=== PATIENT | female | born 1990 | race African-American/Black ===

== ENCOUNTER 2021-02-21 11:50 | Emergency (ER) | payer OTHER, SELFPAY ==
--- NOTE | ~2021-02-21 | XR_ITS ---
EXAMINATION: XR FOREARM, RIGHT CLINICAL INFORMATION: Right forearm pain COMPARISON: None TECHNIQUE: AP and lateral views of the right forearm were obtained. FINDINGS: There is no evidence of acute fracture or dislocation of the right forearm. No elbow effusion is appreciated. No destructive bony lesion. There is negative ulnar variance present. Appears to be some mild edema about the mid ulna. XR/XR forearm RT 2V IMPRESSION: No significant right forearm abnormality appreciated.
--- NOTE | ~2021-02-21 | US_ITS ---
EXAMINATION: US VENOUS WITH DOPPLER UPPER EXTREMITY, RIGHT CLINICAL INFORMATION: Right forearm pain COMPARISON: None TECHNIQUE: Ultrasound of the upper extremity is performed using compression sonography and color and pulse Doppler flow with assessment of augmentation of flow. There is also imaging and Doppler assessment of the jugular and subclavian veins. Spectral analysis with color-flow imaging is performed. FINDINGS: There is filling defect with lack of distensibility within the right cephalic veins in the mid forearm consistent with acute DVT. Respiratory variation, normal compression, and augmented flow are noted the upper extremity including the axillary, brachial, cubital, and radial veins. There is normal flow in the internal jugular and subclavian veins. US/US venous duplex UE RT IMPRESSION: Acute DVT within the right ulnar veins in the forearm.
[2021-02-21 12:04] VITALS: BP 122/95; PULSE 65; RESP 18; TEMP 36.4; O2SAT 98; BMI 32.1
--- NOTE | 2021-02-21 13:02 | ED.EXTPRO ---
HPI - Extremity Problem General Chief complaint: Extremity Injury, Upper Stated complaint: rt arm pain Time Seen by Provider: 02/21/21 12:57 Source: patient Mode of arrival: ambulatory Limitations: no limitations History of Present Illness HPI Narrative: Patient presents to the ED for right forearm pain. Patient states right forearm pain since yesterday. Patient denies any blunt trauma to the forearm. 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 Patient denies any swelling of upper extremity or redness. Patient is not on any control pills patient denies any chest pain or shortness of breath. Patient denies any new workouts. Patient states pain only from elbow down. Patient denies any recent blood drawn extremity or needle puncture of a right upper extremity. Patient denies any drug use. Patient denies any recent surgery, recent long travel, or history of any blood clots. MD Complaint: extremity pain Related Data Previous Rx's Medication Instructions Recorded apixaban [Eliquis DVT-PE Treat 30D 5 mg PO PER PKG DIR #74 ea 02/21/21 Start] Allergies Allergy/AdvReac Type Severity Reaction Status Date / Time No Known Allergies Allergy Unverified 07/13/20 19:17 Review of Systems Review of Systems: Yes all other systems are reviewed and are negative Constitutional: Constitutional: Reports as per HPI and Reports no additional constitutional complaints Eyes: Eyes: Reports as per HPI and Reports no additional eye complaints ENT: Reports system reviewed and no additional complaints, except as documented and Reports as per HPI Cardiovascular: Cardiovascular: Reports as per HPI and Reports no additional cardiovascular complaints Respiratory: Respiratory: Reports as per HPI and Reports no additional respiratory complaints Gastrointestinal: Gastrointestinal: Reports as per HPI and Reports no additional gastrointestinal complaints Genitourinary: Genitourinary: Reports no additional female genitourinary complaints and Reports as per HPI Musculoskeletal: Musculoskeletal: Reports no additional musculoskeletal complaints and Reports as per HPI Comments: Right forearm pain Neurologic: Reports system reviewed and no additional complaints, except as documented and Reports as per HPI Psychiatric: Psychiatric: Reports no additional psychiatric complaints and Reports as per HPI [facility] Past Medical History Medical History (Updated 02/21/21 @ 18:26 by WICHO [place]) Anxiety Surgical History (Updated 02/21/21 @ 12:05 by Abby L Youmell) No pertinent past surgical history Social History Social History Smoked in Last 30 Days: No Use of substances other than those prescribed or required for medical reasons: No Advance Directives: No Advance Directives Information Provided: No Physical Exam Vital Signs: Vital Signs: Last Vital Signs Temp 98.0 F 02/21/21 18:38 Pulse 65 02/21/21 18:38 Resp 16 02/21/21 18:38 BP 119/80 02/21/21 18:38 Pulse Ox 99 02/21/21 18:38 Body Mass Index 32.1 Const: General: cooperative, healthy appearing, comfortable, no acute distress, well developed, alert, awake and Physically active Orientation/consciousness: patient oriented x3 HENMT: Head: Yes normal to inspection, Yes No palpable skull fracture present, Yes normocephalic, No atraumatic, No Ríos's sign, No contusion, No cranial bruits, No hematoma, No laceration, No occipital foramen tenderness, No palpable skull fracture, No raccoon eyes, No scalp lesion, No scalp tenderness, No Temporal artery tenderness present and No periorbital ecchymosis Eyes: General: appearance normal, both eyes and all related structures Neck: Neck: Yes normal visual inspection, Yes full ROM, Yes no lymphadenopathy, Yes no meningeal signs, Yes trachea midline, Yes supple and No tender Chest: Chest palpation & inspection: normal inspection of the chest and normal palpation of entire chest wall Resp: Effort & Inspection: normal respiratory effort and able to speak in complete sentences Auscultation: clear to auscultation bilaterally Cardio: Jugular venous distension: no JVD Heart sounds: S1 normal heart sound present and S2 normal heart sound present GI: Inspection: Yes normal to inspection and No abdominal wall ecchymosis Palpation (GI): Soft to palpation, not firm, nontender, no guarding and not rigid : General: No CVA tenderness and Yes no CVA tenderness Back/Spine/Pelvis: Back: no CVA tenderness, No CVA tenderness and No back tenderness Skin: General skin exam: no rashes or lesions noted and elasticity normal Neuro: General: patient oriented x3, no meningeal signs and CN's II-XI intact bilaterally Cranial nerves: Yes CN's II-XII intact bilaterally Extrem: Other: Right upper extremity: Negative for any swelling, redness, ecchymosis, pus discharge, foul odor, wounds, ulcers, point of entry<del>,</del> or mass on palpation. Positive for tenderness on palpation of right forearm, but is not out of proportion. General: Yes normal to inspection and Yes full ROM Psych: Appearance: grossly normal, well kempt and not disheveled Course Course Course Narrative: Patient will be sent for x-ray of right forearm and given Motrin and Flexeril. Reevaluation(s) Reevaluation #1: Right upper extremity ultrasound came back positive for DVT. Spoke with Dr. Veronica of Hematology and he recommend patient be started on Eliquis. He also recommended patient to have hyper coagulable workup labs and they were ordered. Basic labs also sent. Reevaluation #2: Lab seismograph supervisor canceled hyper coagulable labs that were sent and Dr. Veronica was made aware. He states patient can still be started on Eliquis. Patient informed to call tomorrow Dr. Veronica for follow-up MDM - Extremity (Nontraumatic) MDM Narrative Medical decision making narrative: DVT Lab Data Result diagrams: 02/21/21 16:50 02/21/21 16:50 Labs: Lab Results 02/21/21 02/21/21 02/21/21 Range/Units 16:49 16:50 16:50 WBC 8.1 (4.8-10.8) X10*3/uL RBC 4.12 L (4.20-5.50) X10*6/uL Hgb 13.5 (12.0-16.0) g/dl Hct 41.0 (37-47) % MCV 99.5 H (80-98) fL MCH 32.8 (27.0-33.0) pg MCHC 32.9 (31.0-35.0) g/dl RDW 13.3 (11.0-16.0) % Plt Count 325 (160-400) X10*3/uL MPV 9.6 (9.4-12.3) fL Immature Gran % (Auto) 0.2 (0.0-0.4) % Neut % (Auto) 58.7 (45-73) % Lymph % (Auto) 29.8 (20-40) % Shannon % (Auto) 10.0 (2-11) % Eos % (Auto) 1.2 (0-4) % Baso % (Auto) 0.1 (0-2) % Lymph # (Auto) 2.4 (1.2-4.9) X10*3/uL Shannon # (Auto) 0.8 (0.1-1.2) X10*3/uL Eos # (Auto) 0.1 (0.0-0.4) X10*3/uL Baso # (Auto) 0.0 (0.0-0.2) X10*3/uL Abs Immat Gran (auto) 0.02 (0.00-0.03) X10*3/uL Absolute Neuts (auto) 4.8 (2.0-8.3) X10*3/uL Absolute Nucleated RBC 0.000 (0.0-0.012) X10*3/uL Nucleated RBC % (auto) 0.0 (0.0-0.2) /100WBC PT 13.1 H (10.8-13.0) SEC INR 1.1 (0.9-1.1) APTT 36.9 (24.1-38.0) SEC D-Dimer < 200 NG/ML Sodium (135-145) mmol/L Potassium (3.3-5.1) mmol/L Chloride (96-108) mmol/L Carbon Dioxide (22-29) mmol/L Anion Gap (12-20) BUN (9-16) mg/dL Creatinine (0.5-1.4) mg/dL Estim Creat Clear Calc Estimated GFR Random Glucose (60-115) mg/dL Calcium (8.4-10.2) mg/dL Total Bilirubin (0.0-1.0) mg/dL Direct Bilirubin (0.0-0.5) mg/dL AST (5-31) U/L ALT (0-31) U/L Alkaline Phosphatase (39-117) U/L Total Protein (6.5-8.0) g/dL Albumin (3.5-5.0) g/dL 02/21/ Range/Units 16:50 WBC (4.8-10.8) X10*3/uL RBC (4.20-5.50) X10*6/uL Hgb (12.0-16.0) g/dl Hct (37-47) % MCV (80-98) fL MCH (27.0-33.0) pg MCHC (31.0-35.0) g/dl RDW (11.0-16.0) % Plt Count (160-400) X10*3/uL MPV (9.4-12.3) fL Immature Gran % (Auto) (0.0-0.4) % Neut % (Auto) (45-73) % Lymph % (Auto) (20-40) % Shannon % (Auto) (2-11) % Eos % (Auto) (0-4) % Baso % (Auto) (0-2) % Lymph # (Auto) (1.2-4.9) X10*3/uL Shannon # (Auto) (0.1-1.2) X10*3/uL Eos # (Auto) (0.0-0.4) X10*3/uL Baso # (Auto) (0.0-0.2) X10*3/uL Abs Immat Gran (auto) (0.00-0.03) X10*3/uL Absolute Neuts (auto) (2.0-8.3) X10*3/uL Absolute Nucleated RBC (0.0-0.012) X10*3/uL Nucleated RBC % (auto) (0.0-0.2) /100WBC PT (10.8-13.0) SEC INR (0.9-1.1) APTT (24.1-38.0) SEC D-Dimer NG/ML Sodium 137 (135-145) mmol/L Potassium 4.5 (3.3-5.1) mmol/L Chloride 103 (96-108) mmol/L Carbon Dioxide 26 (22-29) mmol/L Anion Gap 13 (12-20) BUN 10 (9-16) mg/dL Creatinine 0.76 (0.5-1.4) mg/dL Estim Creat Clear Calc 111.8 Estimated GFR > 60 Random Glucose 89 (60-115) mg/dL Calcium 9.7 (8.4-10.2) mg/dL Total Bilirubin 1.0 (0.0-1.0) mg/dL Direct Bilirubin 0.4 (0.0-0.5) mg/dL AST 18 (5-31) U/L ALT 22 (0-31) U/L Alkaline Phosphatase 59 (39-117) U/L Total Protein 7.7 (6.5-8.0) g/dL Albumin 4.4 (3.5-5.0) g/dL Discharge Plan Discharge Clinical Impression: DVT (deep venous thrombosis) Patient Disposition: Home, Self-Care Instructions: Deep Vein Thrombosis (ED) Additional Instructions: Return to the ED for chest pain, shortness of breath, swelling of right upper extremity, weakness, dizziness, passing out, or any other concerning symptoms. Prescriptions: New Eliquis DVT-PE Treat 30D Start 5 mg (74 tabs) tablets,dose pack 5 mg PO PER PKG DIR Qty: 74 RF: 0 Referrals: Anita Veronica MD [Physician] - 2 days (DVT of right arm) Stand Alone Forms: Work/School Release Interventions: ED Discharge Assessment Last Done: 02/21/21 18:45 Discharge Date/Time: 02/21/21 18:45
[2021-02-21] MEDS: Ibuprofen 800 MG TABLET PO (13:18)
[2021-02-21] MEDS: Cyclobenzaprine HCl 5 MG TABLET PO (13:18)
[2021-02-21 15:33] VITALS: BP 121/85; PULSE 62; RESP 14; TEMP 36.7; O2SAT 99
--- NOTE | 2021-02-21 16:01 | PC.NURSE ---
WICHO KENNEY CONSULTED SANDING MACHINE TENDER RE: POC, PT UPDATED LABS TO BE DRAWN AND PT TO BE STARTED ON ELIQUIS PRIOR TO DC, PT AGREEABLE TO POC
[2021-02-21 17:03] LABS: Basophils Percent Auto 0.1 % (0-2); Eosinophils Absolute Auto 0.1 X10*3/uL (0.0-0.4); Eosinophils Percent Auto 1.2 % (0-4); Hemoglobin 13.5 g/dl (12.0-16.0); Imm Gran Abs Auto 0.02 X10*3/uL (0.00-0.03); Imm Gran Pct Auto 0.2 % (0.0-0.4); Lymphocytes Absolute Auto 2.4 X10*3/uL (1.2-4.9); Lymphocytes Percent Auto 29.8 % (20-40); MANUAL DIFF FLAG NO; Mean Corpuscular HGB Conc 32.9 g/dl (31.0-35.0); Mean Corpuscular Hemoglobin 32.8 pg (27.0-33.0); Mean Corpuscular Volume 99.5 fL (80-98); Mean Platelet Volume 9.6 fL (9.4-12.3); Monocytes Absolute Auto 0.8 X10*3/uL (0.1-1.2); Neutrophils Absolute Auto 4.8 X10*3/uL (2.0-8.3); Neutrophils Percent Auto 58.7 % (45-73); Platelet Count 325 X10*3/uL (160-400); Red Blood Count 4.12 X10*6/uL (4.20-5.50); Red Cell Distribution Width 13.3 % (11.0-16.0); White Blood Count 8.1 X10*3/uL (4.8-10.8)
[2021-02-21 17:10] LABS: INTERNATIONAL NORM RATIO 1.1 (0.9-1.1); Prothrombin Time 13.1 SEC (10.8-13.0)
[2021-02-21 17:13] LABS: Partial Thromboplastin Time 36.9 SEC (24.1-38.0)
[2021-02-21 17:33] LABS: Alanine Aminotransferase 22 U/L (0-31); Albumin Level 4.4 g/dL (3.5-5.0); Alkaline Phosphatase 59 U/L (39-117); Anion Gap 13 (12-20); Aspartate Amino Transferase 18 U/L (5-31); Bilirubin Direct 0.4 mg/dL (0.0-0.5); Blood Urea Nitrogen 10 mg/dL (9-16); Calcium 9.7 mg/dL (8.4-10.2); Carbon Dioxide 26 mmol/L (22-29); Chloride 103 mmol/L (96-108); Creatinine Clr Calc Pharmacy 111.8; Estimated Glomerular Filt Rate > 60; Glucose Random 89 mg/dL (60-115); Potassium 4.5 mmol/L (3.3-5.1); Sodium 137 mmol/L (135-145); Total Protein 7.7 g/dL (6.5-8.0)
[2021-02-21 17:51] LABS: D Dimer < 200 NG/ML
[2021-02-21 18:38] VITALS: BP 119/80; PULSE 65; RESP 16; TEMP 36.7; O2SAT 99
== END 2021-02-21 18:45 | disposition home or self-care (01) ==
PROVIDERS: Physician Assistant; Emergency Provider Emergency Medicine Emergency Medical Services
DX: I82.621 Acute embolism and thrombosis of deep veins of right upper extremity (principal); M79.631 Pain in right forearm
CPT/HCPCS: 36415; 73090; 80053; 80076; 82248; 85025; 85379; 85610; 85730; 93971; 99284

== ENCOUNTER 2021-02-22 18:36 | Emergency (ER) | payer OTHER, SELFPAY ==
[2021-02-22 19:41] VITALS: BP 122/82; PULSE 64; RESP 16; TEMP 36.3; O2SAT 99; BMI 32.1
--- NOTE | 2021-02-22 20:58 | ED_ITS ---
HPI - Extremity Problem General Chief complaint: Extremity Problem Stated complaint: BLOOD CLOT Time Seen by Provider: 02/22/21 20:55 Source: patient Mode of arrival: ambulatory Limitations: no limitations History of Present Illness HPI Narrative: Patient was seen here yesterday for right diagnosed with right and a DVT started on Eliquis comes here now saying that she pale feeling pain in the right arm with some tingling in the left arm no shortness of breath no fever skin no swelling patient seems to be slightly anxious and worried Related Data Previous Rx's Medication Instructions Recorded apixaban [Eliquis DVT-PE Treat 30D 5 mg PO PER PKG DIR #74 ea 02/21/21 Start] apixaban [Eliquis] 5 mg PO BID #180 tab 02/26/21 Allergies Allergy/AdvReac Type Severity Reaction Status Date / Time No Known Allergies Allergy Verified 03/15/21 10:31 Review of Systems 2 Review of Systems: Yes all other systems are reviewed and are negative [facility] Past Medical History Medical History Anxiety Thrombosis Surgical History H/O wisdom tooth extraction No pertinent past surgical history Family History Family History Father Heart disease H/O deep venous thrombosis Mother Graves disease Social History Social History Alcohol intake: current Alcohol intake frequency: 0-2 drinks per day Alcohol type: beer Cigarettes Per Day: 2 Substance Use Type: Marijuana Advance Directives: No Advance Directives Information Provided: No Patient : No Physical Exam Vital Signs: Vital Signs: Last Vital Signs Temp 97.4 F 02/22/21 19:41 Pulse 64 02/22/21 19:41 Resp 16 02/22/21 19:41 BP 122/82 02/22/21 19:41 Pulse Ox 99 02/22/21 19:41 Body Mass Index 32.1 Appearance: Alert. Oriented X3. No acute distress. Anxious Eyes: PERRLA, No Nystagmus ENT: Pharynx normal. Oral Mucosa moist Neck: Normal inspection. Neck supple. CVS: Normal heart rate and rhythm. Pulses normal. Respiratory: No respiratory distress. Equal air entry bilateral, no wheezing/rales/rhonchi Abdomen: Soft and nontender. Bowel sounds are present, no mass palpable, no CVA tenderness Skin: Skin warm and dry. Normal skin color. Normal skin turgor. Extremities: No lower extremity edema. No calf tenderness slight tenderness without significant swelling of right forearm Neuro: Oriented X 3. No motor deficit. No sensory deficit Discharge Plan Discharge Clinical Impression: Deep venous thrombosis of upper extremity Qualifiers: Affected thrombotic vein of extremity: other upper extremity vein Chronicity: acute Laterality: right Qualified Code(s): I82.621 - Acute embolism and thrombosis of deep veins of right upper extremity Patient Disposition: Home, Self-Care Instructions: Deep Vein Thrombosis (ED) Additional Instructions: continue to take Eliquis and follow up with PCP Prescriptions: No Action Eliquis DVT-PE Treat 30D Start 5 mg (74 tabs) tablets,dose pack 5 mg PO PER PKG DIR Qty: 74 RF: 0 Eliquis 5 mg Tablet 5 mg PO BID Qty: 180 RF: 2 Interventions: ED Discharge Assessment Last Done: 02/22/21 21:37 Discharge Date/Time: 02/22/21 21:23
== END 2021-02-22 21:23 | disposition home or self-care (01) ==
PROVIDERS: Emergency Provider Internal Medicine
DX: I82.621 Acute embolism and thrombosis of deep veins of right upper extremity (principal); M79.622 Pain in left upper arm; F17.210 Nicotine dependence, cigarettes, uncomplicated; F12.90 Cannabis use, unspecified, uncomplicated; Z79.01 Long term (current) use of anticoagulants
CPT/HCPCS: 99282; 99283

== ENCOUNTER → 2021-02-27 11:18 | Outpatient (BNVA) | payer OTHER, SELFPAY | PROVIDERS: PCP Nurse Practitioner; Visit Provider Surgery Vascular Surgery ==

== ENCOUNTER → 2021-02-28 06:38 | Day surgery (SDC) | payer OTHER, SELFPAY ==
[2021-02-28 06:27] VITALS: BMI 31.6
[2021-02-28 06:35] LABS: MANUAL DIFF FLAG NO
[2021-02-28 06:42] LABS: Basophils Percent Auto 0.1 % (0-2); Eosinophils Absolute Auto 0.1 X10*3/uL (0.0-0.4); Eosinophils Percent Auto 1.1 % (0-4); Hematocrit 38.2 % (37-47); Hemoglobin 12.8 g/dl (12.0-16.0); Imm Gran Abs Auto 0.01 X10*3/uL (0.00-0.03); Imm Gran Pct Auto 0.1 % (0.0-0.4); Lymphocytes Absolute Auto 1.9 X10*3/uL (1.2-4.9); Mean Corpuscular HGB Conc 33.5 g/dl (31.0-35.0); Mean Corpuscular Volume 98.5 fL (80-98); Mean Platelet Volume 9.9 fL (9.4-12.3); Monocytes Absolute Auto 0.7 X10*3/uL (0.1-1.2); Monocytes Percent Auto 9.5 % (2-11); Neutrophils Absolute Auto 4.7 X10*3/uL (2.0-8.3); Neutrophils Percent Auto 63.2 % (45-73); Platelet Count 316 X10*3/uL (160-400); Red Blood Count 3.88 X10*6/uL (4.20-5.50); Red Cell Distribution Width 12.8 % (11.0-16.0); White Blood Count 7.4 X10*3/uL (4.8-10.8)
[2021-02-28 06:50] LABS: INTERNATIONAL NORM RATIO 1.1 (0.9-1.1); Prothrombin Time 13.3 SEC (10.8-13.0)
[2021-02-28] MEDS: 0.9 % Sodium Chloride 1,000 ML 100 ML IVCONT (07:00)
[2021-02-28 07:01] VITALS: BP 114/84; PULSE 71; RESP 18; TEMP 36.6; O2SAT 98
[2021-02-28 07:12] LABS: Anion Gap 10 (12-20); Blood Urea Nitrogen 8 mg/dL (9-16); Calcium 9.2 mg/dL (8.4-10.2); Carbon Dioxide 26 mmol/L (22-29); Chloride 105 mmol/L (96-108); Creatinine Clr Calc Pharmacy 108.1; Estimated Glomerular Filt Rate > 60; Glucose Random 104 mg/dL (60-115); Potassium 4.4 mmol/L (3.3-5.1); Sodium 137 mmol/L (135-145)
--- NOTE | 2021-02-28 08:49 | W.PM.OPN ---
Operative Note Operative Note Date of Service: 02/28/21 Narrative: Operative note by [facility] Preoperative diagnosis: DVT right upper extremity Postoperative diagnosis: Same Procedure: 1. Ultrasound-guided right brachial vein puncture 2.Right upper extremity venogram Surgeon:Erick iMtchell M.D. 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 She was seen by Hematology Oncology and there was concern potential venous thoracic outlet occlusion. Also of note she has a father 2 aunts and a grandfather with a history of DVT. She now presents for right upper extremity venogram possible thrombolysis. The patient has signed the informed consent after reviewing risks, complications, benefits, and alternatives previously discussed with the patient in my office. The patient was given the opportunity to ask any additional questions or voice any concerns. All questions were answered to the patient's satisfaction. Procedure in detail: Patient was brought to the angiography suite prior to which timeout was called for patient identification and site verification right upper extremity was prepped and draped in the standard surgical fashion. Under ultrasound guidance right brachial vein was identified and puncture. Subsequent wire was brought up in to a more central location. Over this a 4 [place]awk precision sheath was then placed. This was flushed with hep saline. At this point we took venous images the brachial vein and all central veins. Multiple orthogonal views were undertaken. There was 1 segment in the acromial clavicular joint which was mildly stenotic. This did not appear flow limiting. No intervention was indicated. Wire and sheath were subsequently removed. 10 minutes of direct pressure was held. Sterile dressing along with Abdirahman wrap was then placed. Patient tolerated the procedure well and returned to recovery with stable vitals. Interpretation of films.: Normal venous anatomy with no flow-limiting stenosis. No central thrombosis. Conclusion: Successful diagnostic venogram. She will resume her Eliquis. She is currently undergoing hypercoagulable workup with Hematology Oncology. This note is constructed using voice recognition software. While every effort has been made to ensure accuracy, maintenance advisor errors may have been included. Thank you for allowing me to participate in the care of your patient. Yours sincerely, Erick Mitchell MD, FACS, R.P.V.I.
[2021-02-28 08:51] VITALS: BP 111/76; PULSE 63; RESP 16; TEMP 36.2; O2SAT 99
[2021-02-28 09:06] VITALS: BP 110/80; PULSE 57; RESP 17; O2SAT 98
[2021-02-28 09:21] VITALS: BP 108/79; PULSE 68; RESP 17; TEMP 36.2; O2SAT 99
== END | disposition home or self-care (01) ==
PROVIDERS: PCP Nurse Practitioner; Visit Provider Surgery Vascular Surgery
DX: I82.621 Acute embolism and thrombosis of deep veins of right upper extremity (principal); Z79.02 Long term (current) use of antithrombotics/antiplatelets; F12.90 Cannabis use, unspecified, uncomplicated; Z72.89 Other problems related to lifestyle; F17.210 Nicotine dependence, cigarettes, uncomplicated; Z82.49 Family history of ischemic heart disease and other diseases of the circulatory system
CPT/HCPCS: 36415; 75820; 76937; 80048; 85025; 85610; 85730; 99152; 99153; C1887; J2250; J3010; Q9967

== ENCOUNTER → 2021-03-15 10:29 | Outpatient (BNVA) | payer OTHER, SELFPAY | PROVIDERS: PCP Nurse Practitioner; Visit Provider Surgery Vascular Surgery ==

== ENCOUNTER 2021-03-27 20:27 | Emergency (ER) | payer OTHER, SELFPAY ==
--- NOTE | ~2021-03-27 | US_ITS ---
EXAMINATION: US VENOUS WITH DOPPLER UPPER EXTREMITY, RIGHT CLINICAL INFORMATION: Rule out DVT COMPARISON: 02/21/2021 TECHNIQUE: Ultrasound of the upper extremity is performed using compression sonography and color and pulse Doppler flow with assessment of augmentation of flow. There is also imaging and Doppler assessment of the jugular and subclavian veins. Spectral analysis with color-flow imaging is performed. FINDINGS: Respiratory variation, normal compression, and augmented flow are noted throughout the upper extremity including the axillary, brachial, basilic, cephalic, and radial and ulnar veins. There is normal flow in the internal jugular and subclavian veins. There is no visible deep or superficial thrombophlebitis. If the patient's symptoms progress, a followup ultrasound in 5 -7 days might be of value to exclude proximal propagation from a nonvisualized distal arm vein. US/US venous duplex UE RT IMPRESSION: No DVT demonstrated in the right upper extremity.
[2021-03-27 21:38] VITALS: BP 129/88; PULSE 85; RESP 16; TEMP 36.2; O2SAT 98; BMI 30.6
--- NOTE | 2021-03-28 00:56 | ED_ITS ---
HPI - Extremity Problem General Chief complaint: Extremity Problem Stated complaint: ARM PAIN - NUMBNESS Time Seen by Provider: 03/28/21 00:49 Source: patient Mode of arrival: ambulatory Limitations: no limitations History of Present Illness HPI Narrative: Patient comes emergency room complaining numbness/tingling sensation in her right forearm. Patient states it is the same sensation she had when she was diagnosed with a DVT. Patient is currently on Eliquis, states she is compliant with her medication. Patient states it started a few hours prior to arrival, patient states it does not hurt, but she thinks it is slightly more swollen, right below the elbow. Patient is able to flex and extend the wrist, elbow, normal range of motion at the shoulder. Denies chest pain, no shortness of breath, no lower extremity pain Related Data Previous Rx's Medication Instructions Recorded apixaban [Eliquis DVT-PE Treat 30D 5 mg PO PER PKG DIR #74 ea 02/21/21 Start] apixaban [Eliquis] 5 mg PO BID #180 tab 02/26/21 Allergies Allergy/AdvReac Type Severity Reaction Status Date / Time No Known Allergies Allergy Verified 03/15/21 10:31 Review of Systems Review of Systems: Constitutional : No Weight loss, No Fever, No Chills, No Night Sweats, No Fatigue, No Malaise ENT/Mouth : No Hearing loss, No Ear Pain, No Nasal Congestion, No Sinus Pain, No Hoarseness, No sore throat, No Rhinorrhea, No Swallowing Difficulty Eyes: No Eye Pain, No Swelling, No Redness, No Foreign Body, No Discharge, No Vision Changes Cardiovascular : No Chest Pain, No SOB, No Dyspnea on Exertion, No Orthopnea, No Edema, No Palpitations Respiratory : No Cough, No Sputum, No Wheezing, No Smoke Exposure, No Dyspnea Gastrointestinal : No Nausea, No Vomiting, No Diarrhea, No Constipation, No abdominal Pain, No Hematochezia, No Melena Genitourinary : no irregular bleeding, No Dysuria, No Urinary Frequency, No Hematuria, No Urinary Incontinence, No Urgency, No Flank Pain, No Urinary Flow Changes, No Hesitancy Musculoskeletal : Complaining of right forearm numbness, tingling Skin : No Skin Lesions, No rash Neuro : No Weakness, No Numbness, No Paresthesias, No Loss of Consciousness, No Dizziness, No Headache Psych : No Anxiety/Panic, No Depression, No SI/HI/AH/VH, No Social Issues, Heme/Lymph: No Bruising, No Bleeding,No Lymphadenopathy Endocrine : No Polyuria, No Polydipsia, No Temperature Intolerance [facility] Past Medical History Medical History Anxiety Thrombosis Surgical History H/O wisdom tooth extraction No pertinent past surgical history Family History Family History Father Heart disease H/O deep venous thrombosis Mother Graves disease Social History Social History Alcohol intake: current Alcohol intake frequency: 0-2 drinks per day Alcohol type: beer Cigarettes Per Day: 2 Substance Use Type: Marijuana Advance Directives: No Advance Directives Information Provided: No Patient : No Physical Exam Vital Signs: Vital Signs: Last Vital Signs Temp 97.2 F 03/27/21 21:38 Pulse 85 03/27/21 21:38 Resp 16 03/27/21 21:38 BP 129/88 03/27/21 21:38 Pulse Ox 98 03/27/21 21:38 Body Mass Index 30.6 Appearance: Alert. Oriented X3. No acute distress. Eyes: Pupils equal, round and reactive to light. ENT: Pharynx normal. Neck: Normal inspection. Neck supple. No lymph nodes noted. No crepitus CVS: Normal heart rate and rhythm. Pulses normal. Normal S1 and S2 Respiratory: No respiratory distress. Breath sounds normal. No Wheezing. No rales Abdomen: Soft and nontender. No rigidity. No distention. good BS x4 Skin: Skin warm and dry. Normal skin color. Normal skin turgor. Extremities: No lower extremity edema. Right forearm does not seem to be swollen, not tender to touch, patient has normal range of motion and shoulder elbow and wrist Neuro: Oriented X 3. No motor deficit. No sensory deficit. Moving all extermities. No slurred speech. Course Course Course Narrative: I discussed the ultrasound with the patient, no DVT. It is possible the patient may have an impinged nerve at the elbow. At this time, there are no neurological deficits, patient has no pain, has full range of motion, neurological exam within normal limits MDM - Extremity (Nontraumatic) Imaging Data Ultrasound of right arm: Radiologist's impression: TECHNIQUE: Ultrasound of the upper extremity is performed using compression sonography and color and pulse Doppler flow with assessment of augmentation of flow. There is also imaging and Doppler assessment of the jugular and subclavian veins. Spectral analysis with color-flow imaging is performed. FINDINGS: Respiratory variation, normal compression, and augmented flow are noted throughout the upper extremity including the axillary, brachial, basilic, cephalic, and radial and ulnar veins. There is normal flow in the internal jugular and subclavian veins. There is no visible deep or superficial thrombophlebitis. If the patient's symptoms progress, a followup ultrasound in 5 -7 days might be of value to exclude proximal propagation from a nonvisualized distal arm vein. US/US venous duplex UE RT IMPRESSION: No DVT demonstrated in the right upper extremity. Discharge Plan Discharge Clinical Impression: Arm paresthesia, right Patient Disposition: Home, Self-Care Instructions: Paresthesia (ED) Additional Instructions: Please follow-up with your primary care physician tomorrow. If you have any worsening or new symptoms, please return to the emergency room or call 911 Prescriptions: No Action Eliquis DVT-PE Treat 30D Start 5 mg (74 tabs) tablets,dose pack 5 mg PO PER PKG DIR Qty: 74 RF: 0 Eliquis 5 mg Tablet 5 mg PO BID Qty: 180 RF: 2
== END 2021-03-28 03:47 | disposition home or self-care (01) ==
PROVIDERS: Emergency Provider Emergency Medicine
DX: M79.631 Pain in right forearm (principal); R20.2 Paresthesia of skin; F17.210 Nicotine dependence, cigarettes, uncomplicated; F12.90 Cannabis use, unspecified, uncomplicated; Z86.718 Personal history of other venous thrombosis and embolism; Z79.01 Long term (current) use of anticoagulants
CPT/HCPCS: 93971; 99283; 99284

== ENCOUNTER 2021-04-17 10:25 | Emergency (ER) | payer OTHER, SELFPAY ==
--- NOTE | ~2021-04-17 | XR_ITS ---
EXAMINATION: XR CHEST CLINICAL INFORMATION: Chest pain. COMPARISON: Chest 10/29/2017 TECHNIQUE: 2 views of the chest were obtained. FINDINGS: No significant abnormality is noted involving the heart, lungs, mediastinum, bony thorax or soft tissues. XR/XR chest 2V IMPRESSION: Unremarkable chest examination.
[2021-04-17 10:30] VITALS: BP 135/88; PULSE 70; O2SAT 100
[2021-04-17 10:42] VITALS: BP 117/80; PULSE 69; RESP 18; O2SAT 98; BMI 32.9
--- NOTE | 2021-04-17 10:46 | ECG_ITS ---
Test Reason : CHEST PAIN Blood Pressure : / mmHG Vent. Rate : 061 BPM Atrial Rate : 061 BPM P-R Int : 164 ms QRS Dur : 078 ms QT Int : 394 ms P-R-T Axes : 004 027 038 degrees QTc Int : 396 ms Normal sinus rhythm Normal ECG No previous ECGs available Referred By: Generic ED Physician Electronically Signed By:Lebron Quiroga
--- NOTE | 2021-04-17 13:58 | ED.CHESTPAIN ---
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 She went into an air conditioned room and was lightheaded. She did not have improvement in her symptoms so her boss called EMS. Since arrival to the ER her symptoms have significantly improved but she does not feel back to baseline. The pain and SOB are much better but she is still lightheaded. She has no N/V, diaphoresis. No fever, chills. She has been compliant with her Eliquis and has not missed any doses. She has a strong family history of blood clots in both of her parents. Hypercoagulable workup has been initated by her Urologist Physician and she has a follow up appointment in May. complaint: chest pain, chest heaviness and other (SOB) Onset (ago): hour(s) Timing of current episode: episodic Prior episodes: No Onset: during rest Pain location: substernal Pain radiation: none Severity: moderate Quality: tightness and heaviness Relieving factors: rest Exacerbating factors: nothing Context: history of DVT/PE Associated symptoms: dyspnea Treatment prior to arrival: aspirin Risk Factors Coronary artery disease risk factors: none Thoracic aortic dissection risk factors: none Pulmonary embolism risk factors: history of deep vein thrombosis Related Data On Oral Contraceptives: No Previous Rx's Medication Instructions Recorded apixaban [Eliquis DVT-PE Treat 30D 5 mg PO PER PK DIR #74 ea 02/21/21 Start] apixaban [Eliquis] 5 mg PO BID #180 tab 02/26/21 Allergies Allergy/AdvReac Type Severity Reaction Status Date / Time No Known Allergies Allergy Verified 03/15/21 10:31 Review of Systems Review of Systems: Constitutional: No Fever, No Chills ENT/Mouth: No sore throat, No Rhinorrhea, No Swallowing Difficulty Eyes: No Eye Pain, No Swelling, No Redness Cardiovascular: No Chest Pain, No SOB, No Orthopnea, No Edema Respiratory: No Cough, No Sputum, No Wheezing, No dyspnea Gastrointestinal: No Nausea, No Vomiting, No Diarrhea, No abdominal Pain Genitourinary: No Dysuria, No Urinary Frequency, No Hematuria Musculoskeletal: No joint pain, No Myalgias Skin: No Skin Lesions, No rash Neuro: No Weakness, No Numbness, No Dizziness, No Headache Psych: No Anxiety/Panic, No Depression Heme/Lymph: No Bruising, No Lymphadenopathy Endocrine: No Polyuria, No Polydipsia [facility] Past Medical History Medical History Anxiety Thrombosis Surgical History H/O wisdom tooth extraction No pertinent past surgical history Family History Family History Father Heart disease H/O deep venous thrombosis Mother Graves disease Social History Social History Alcohol intake: current Alcohol intake frequency: 0-2 drinks per day Alcohol type: beer Cigarettes Per Day: 2 Substance Use Type: Marijuana Advance Directives: No Advance Directives Information Provided: No Patient : No Physical Exam Vital Signs: Vital Signs: Last Vital Signs Temp 96.5 F L 04/17/21 15:24 Pulse 66 04/17/21 15:24 Resp 16 04/17/21 15:24 BP 120/80 04/17/21 15:24 Pulse Ox 99 04/17/21 15:24 Body Mass Index 32.9 Appearance: Alert. Oriented X3. No acute distress. Eyes: Pupils equal, round and reactive to light. ENT: Pharynx normal. Neck: Normal inspection. Neck supple. CVS: Normal heart rate and rhythm. Pulses normal. Respiratory: No respiratory distress. Breath sounds normal. Abdomen: Soft and nontender. +BS x4 Skin: Skin warm and dry. Normal skin color. Normal skin turgor. No rashes. Extremities: No lower extremity edema. No LE edema, negative Jake's sign Neuro: Oriented X 3. No motor deficit. No sensory deficit. Course Course Course Narrative: 30 y/o female with history of LUE DVT on Eliquis presenting with SOB and chest pressure at work today, associated with anxiety. EKG is normal. Will get lab worup. No hypoxia or tachcardia. Doubt PE given she is fulyl anticoagulated. Symptoms are signfiicantly improved since arrival. Reevaluation(s) Reevaluation #1: Troponin negative. CXR normal. Labs unremarkable. Her chest pain and SOB are most likely related to anxiety. We discussed how PE is much less likely however if she has recurrent symptoms she will need to come back for evaluation. 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 Stable for d/c home. MDM - Chest Pain Medical Records Data Attestation: I reviewed the patient's medical records. Lab Data Attestation: I reviewed the patient's lab results. Result diagrams: 04/17/21 14:06 04/17/21 14:06 Labs: Lab Results 04/17/21 04/17/21 04/17/21 Range/Units 14:06 14:06 14:06 WBC 7.4 (4.8-10.8) X10*3/uL RBC 3.70 L (4.20-5.50) X10*6/uL Hgb 12.0 (12.0-16.0) g/dl Hct 36.4 L (37-47) % MCV 98.4 H (80-98) fL MCH 32.4 (27.0-33.0) pg MCHC 33.0 (31.0-35.0) g/dl RDW 13.2 (11.0-16.0) % Plt Count 297 (160-400) X10*3/uL MPV 9.9 (9.4-12.3) fL Immature Gran % (Auto) 0.3 (0.0-0.4) % Neut % (Auto) 64.9 (45-73) % Lymph % (Auto) 25.5 (20-40) % Motley % (Auto) 7.6 (2-11) % Eos % (Auto) 1.4 (0-4) % Baso % (Auto) 0.3 (0-2) % Lymph # (Auto) 1.9 (1.2-4.9) X10*3/uL Motley # (Auto) 0.6 (0.1-1.2) X10*3/uL Eos # (Auto) 0.1 (0.0-0.4) X10*3/uL Baso # (Auto) 0.0 (0.0-0.2) X10*3/uL Abs Immat Gran (auto) 0.02 (0.00-0.03) X10*3/uL Absolute Neuts (auto) 4.8 (2.0-8.3) X10*3/uL Absolute Nucleated RBC 0.000 (0.0-0.012) X10*3/uL Nucleated RBC % (auto) 0.0 (0.0-0.2) /100WBC Sodium 137 (135-145) mmol/L Potassium 3.7 (3.3-5.1) mmol/L Chloride 105 (96-108) mmol/L Carbon Dioxide 26 (22-29) mmol/L Anion Gap 10 L (12-20) BUN 9 (9-16) mg/dL Creatinine 0.79 (0.5-1.4) mg/dL Estim Creat Clear Calc 104.9 Estimated GFR > 60 Random Glucose 121 H (60-115) mg/dL Calcium 9.2 (8.4-10.2) mg/dL Troponin I High Sens < 3.5 (<3.5-17.0) ng/L ECG Data ECG #1: Attestation: I personally reviewed and interpreted this ECG as follows: ECG interpretation date: 04/17/21 ECG interpretation time: 13:45 Interpretation: normal sinus rhythm, HR 61 bpm, SC interval, NO ST segment elevations or depressions. Discharge Plan Discharge Clinical Impression: Atypical chest pain, Anxiety Patient Disposition: Home, Self-Care Instructions: Noncardiac Chest Pain (ED), Anxiety (ED) Additional Instructions: Your lab workup today was normal. Your EKG was normal. Your chest x-ray was clear. Your symptoms may be related to anxiety. Recommend following up with your primary care provider. If you have recurrent chest pain or shortness of breath, call 911 or come back to the ER for further evaluation. Prescriptions: No Action Eliquis DVT-PE Treat 30D Start 5 mg (74 tabs) tablets,dose pack 5 mg PO PER PKG DIR Qty: 74 RF: 0 Eliquis 5 mg Tablet 5 mg PO BID Qty: 180 RF: 2 Stand Alone Forms: Work/School Release Interventions: ED Discharge Assessment Last Done: 04/17/21 15:31 Discharge Date/Time: 04/17/21 15:32
[2021-04-17 14:10] LABS: MANUAL DIFF FLAG NO
[2021-04-17 14:13] LABS: Basophils Percent Auto 0.3 % (0-2); Eosinophils Absolute Auto 0.1 X10*3/uL (0.0-0.4); Eosinophils Percent Auto 1.4 % (0-4); Hematocrit 36.4 % (37-47); Imm Gran Abs Auto 0.02 X10*3/uL (0.00-0.03); Imm Gran Pct Auto 0.3 % (0.0-0.4); Lymphocytes Absolute Auto 1.9 X10*3/uL (1.2-4.9); Lymphocytes Percent Auto 25.5 % (20-40); Mean Corpuscular Hemoglobin 32.4 pg (27.0-33.0); Mean Corpuscular Volume 98.4 fL (80-98); Mean Platelet Volume 9.9 fL (9.4-12.3); Monocytes Absolute Auto 0.6 X10*3/uL (0.1-1.2); Monocytes Percent Auto 7.6 % (2-11); Neutrophils Absolute Auto 4.8 X10*3/uL (2.0-8.3); Neutrophils Percent Auto 64.9 % (45-73); Platelet Count 297 X10*3/uL (160-400); Red Cell Distribution Width 13.2 % (11.0-16.0); White Blood Count 7.4 X10*3/uL (4.8-10.8)
[2021-04-17 14:43] LABS: Anion Gap 10 (12-20); Blood Urea Nitrogen 9 mg/dL (9-16); Calcium 9.2 mg/dL (8.4-10.2); Carbon Dioxide 26 mmol/L (22-29); Chloride 105 mmol/L (96-108); Creatinine Clr Calc Pharmacy 104.9; Estimated Glomerular Filt Rate > 60; Glucose Random 121 mg/dL (60-115); Potassium 3.7 mmol/L (3.3-5.1); Sodium 137 mmol/L (135-145)
[2021-04-17 14:46] LABS: Troponin-I High Sensitivity < 3.5 ng/L (<3.5-17.0)
[2021-04-17 15:24] VITALS: BP 120/80; PULSE 66; RESP 16; TEMP 35.8; O2SAT 99
== END 2021-04-17 15:32 | disposition home or self-care (01) ==
PROVIDERS: Physician Assistant; Emergency Provider Emergency Medicine Emergency Medical Services
DX: R07.89 Other chest pain (principal); R06.02 Shortness of breath; F41.9 Anxiety disorder, unspecified; I82.621 Acute embolism and thrombosis of deep veins of right upper extremity; Z79.01 Long term (current) use of anticoagulants
CPT/HCPCS: 36415; 71046; 80048; 84484; 85025; 93005; 99283

== ENCOUNTER → 2021-06-12 09:35 | Outpatient (BNVA) | payer OTHER, SELFPAY | PROVIDERS: Visit Provider Surgery Vascular Surgery ==

== ENCOUNTER 2021-06-30 13:05 | Emergency (ER) | payer OTHER, SELFPAY ==
--- NOTE | ~2021-06-30 | US_ITS ---
EXAMINATION: US VENOUS WITH DOPPLER UPPER EXTREMITY, RIGHT CLINICAL INFORMATION: Swelling and warmth. History of DVT COMPARISON: 02/21/2021 TECHNIQUE: Ultrasound of the upper extremity is performed using compression sonography and color and pulse Doppler flow with assessment of augmentation of flow. There is also imaging and Doppler assessment of the jugular and subclavian veins. Spectral analysis with color-flow imaging is performed. FINDINGS: Respiratory variation, normal compression, and augmented flow are noted throughout the upper extremity including the axillary, brachial, cubital, and radial and ulnar veins. There is normal flow in the internal jugular and subclavian veins. There is no visible deep or superficial thrombophlebitis. If the patient's symptoms progress, a followup ultrasound in 5 -7 days might be of value to exclude proximal propagation from a nonvisualized distal arm vein. US/US venous duplex UE RT IMPRESSION: No DVT demonstrated in the right upper extremity
[2021-06-30 13:44] VITALS: BP 119/88; PULSE 71; RESP 16; TEMP 36.6; O2SAT 100; BMI 32.4
[2021-06-30 14:25] LABS: Hematocrit 37.2 % (37-47); Hemoglobin 12.1 g/dl (12.0-16.0); Mean Corpuscular HGB Conc 32.5 g/dl (31.0-35.0); Mean Corpuscular Hemoglobin 32.4 pg (27.0-33.0); Mean Corpuscular Volume 99.7 fL (80-98); Mean Platelet Volume 9.7 fL (9.4-12.3); Platelet Count 362 X10*3/uL (160-400); Red Blood Count 3.73 X10*6/uL (4.20-5.50); Red Cell Distribution Width 12.8 % (11.0-16.0); White Blood Count 7.5 X10*3/uL (4.8-10.8)
[2021-06-30 14:32] LABS: INTERNATIONAL NORM RATIO 1.1 (0.9-1.1)
[2021-06-30 14:39] LABS: Anion Gap 10 (12-20); Blood Urea Nitrogen 9 mg/dL (9-16); Calcium 9.4 mg/dL (8.4-10.2); Carbon Dioxide 28 mmol/L (22-29); Chloride 106 mmol/L (96-108); Creatinine Clr Calc Pharmacy 84.6; Estimated Glomerular Filt Rate > 60; Glucose Random 76 mg/dL (60-115); Potassium 4.3 mmol/L (3.3-5.1); Sodium 140 mmol/L (135-145)
[2021-06-30 14:40] LABS: Magnesium 2.1 mg/dL (1.6-2.6)
--- NOTE | 2021-06-30 16:47 | ED.EXTPRO ---
HPI - Extremity Problem General Chief complaint: Extremity Problem Stated complaint: BLOOD CLOT R ARM Time Seen by Provider: 06/30/21 16:30 Source: patient Mode of arrival: ambulatory Limitations: no limitations History of Present Illness HPI Narrative: 30-year-old female with a history of an upper extremity DVT in January of this year presents for 3 days of pain similar to when she had her prior blood clot. Her right forearm is painful, tight and feels warm, she is numb in her fingers. Her hand is getting tight and swollen. She also has pain in her upper anterior arm. States her girlfriend noticed a bruise in the back of her right arm a few days ago. Patient is dark-skinned, and for bruising to show up but has to be significant. No chest pain, no shortness of breath, no fevers, no trauma. Patient was diagnosed with a DVT in her right upper extremity February 21, 2021, she has been anticoagulated with Eliquis. Patient stopped her Eliquis at the end of April. Patient sees vascular and heme Onc your polio. REYNOLDS Complaint: extremity pain and extremity swelling Onset (ago): day(s) (3) Pain Consistency: constant Location: right Severity scale (1-10): 5 Quality: aching Relieving factors: nothing Associated symptoms: denies other symptoms Context: history of DVT Related Data Home Medications Medication Instructions Recorded Confirmed apixaban 5 mg tablet (Eliquis) 5 mg PO BID 06/12/21 Previous Rx's Medication Instructions Recorded cephalexin 500 mg capsule 500 mg PO Q6H 5 Days #20 cap 06/30/21 prednisone 20 mg tablet 40 mg PO DAILY 5 Days #10 tab 06/30/21 Allergies Allergy/AdvReac Type Severity Reaction Status Date / Time No Known Allergies Allergy Verified 06/30/21 13:51 Review of Systems Constitutional: Constitutional: Denies fatigue, Denies fever(s), Denies headache(s) and Denies weakness Eyes: Eyes: Denies diplopia ENT: Denies vertigo, Denies otalgia, Denies headache(s) and Denies sore throat Cardiovascular: Cardiovascular: Denies chest pain, Denies syncope, Denies leg edema, Denies lightheadedness, Denies Loss of Consciousness, Denies palpitations and Denies dyspnea Respiratory: Respiratory: Denies chest congestion, Denies cough and Denies dyspnea Gastrointestinal: Gastrointestinal: Denies abdominal pain, Denies hematochezia, Denies constipation, Denies diarrhea, Denies nausea and Denies vomiting Genitourinary: Genitourinary: Reports no additional female genitourinary complaints Musculoskeletal: Musculoskeletal: Reports numbness and Reports tingling Integumentary/Breasts: Skin/Breast: Reports erythema Comments: Warmth and swelling right forearm Neurologic: Denies confusion, Denies vertigo, Denies syncope, Denies headache(s), Reports numbness, Reports tingling and Denies weakness Comments: Numbness and tingling right hand and fingers Psychiatric: Psychiatric: Denies anxiety, Denies confusion and Denies depression Endocrine: Endocrine: Denies fatigue and Denies palpitations PMFSH Past Medical History Medical History Anxiety Normal coronary angiogram Thrombosis Surgical History H/O wisdom tooth extraction No pertinent past surgical history Family History Family History Father H/O deep venous thrombosis Heart disease Diabetes Mother Graves disease Diabetes Social History Social History Alcohol intake: never Patient Tobacco Use Status: Tobacco use Unknown Cigarettes Per Day: 2 Use of substances other than those prescribed or required for medical reasons: No Substance Use Type: Marijuana Advance Directives: Yes Advance Directives Information Provided: Yes Advance Directives on File: No Patient : No Physical Exam Vital Signs: Vital Signs: Last Vital Signs Temp 98.2 F 06/30/21 17:09 Pulse 61 06/30/21 17:09 Resp 12 06/30/21 17:09 BP 110/81 06/30/21 17:09 Pulse Ox 99 06/30/21 17:09 Body Mass Index 32.4 Const: General: healthy appearing, no acute distress, well developed, alert and awake; No confusion Nutritional Appearance: well nourished Orientation/consciousness: patient oriented x3 and No confusion Limitations: no limitations HENMT: Head: Yes normal to inspection, Yes normocephalic and Yes atraumatic Ears: hearing grossly normal bilaterally Eyes: Pupils: Equal, round and reactive pupils present EOM: EOMs intact bilaterally Resp: Effort & Inspection: normal respiratory effort Auscultation: clear to auscultation bilaterally, no crackles, no rales, no rhonchi and no wheezes Cardio: Rate: regular rate Rhythm: regular rhythm Heart sounds: S1 normal heart sound present and S2 normal heart sound present Skin: Other: Warmth and swelling to right forearm, bruise to posterior right arm superior to the elbow Neuro: General: patient oriented x3, tone normal and No confusion Cranial nerves: Yes Equal, round and reactive pupils present Extrem: Right upper extremity: full ROM, normal capillary refill, edema and elbow/forearm Details: tenderness (Diffuse), swelling (Diff.), normal ROM, warmth (Forearm), ecchymosis humerus distal posterior and distal pulses intact; Negative for no deformity; No no cyanosis Course Course Course Narrative: 30-year-old female with a history of right upper extremity DVT 1st diagnosed in January, who finished her Eliquis 5 weeks ago presents with 3 days of right upper extremity pain, with right forearm tightness, warmth, and pain. Fingers feel numb. On exam, patient has swelling and warmth and right forearm. Patient has very dark skin, hard to appreciate erythema. Patient has reduced sensation in all of her fingers in her right hand which appears mildly swollen. 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 Patient's labs are unremarkable, PT INR normal. Ordered ultrasound upper extremity. Ultrasound is negative for right upper extremity DVT. Patient has dark skin, so hard to appreciate erythema, the patient does have swelling and warmth of right forearm. Will treat as a cellulitis, Keflex and prednisone. Counseled patient to follow-up in 5-7 days for another ultrasound is symptoms become worse and do not resolve. Consultation call her primary care provider on Friday for a follow-up appointment in this coming week. MDM - Extremity (Nontraumatic) Lab Data Result diagrams: 06/30/21 14:15 06/30/21 14:15 Labs: Lab Results 06/30/21 06/30/21 06/30/21 Range/Units 14:15 14:15 14:15 WBC 7.5 (4.8-10.8) X10*3/uL RBC 3.73 L (4.20-5.50) X10*6/uL Hgb 12.1 (12.0-16.0) g/dl Hct 37.2 (37-47) % MCV 99.7 H (80-98) fL MCH 32.4 (27.0-33.0) pg MCHC 32.5 (31.0-35.0) g/dl RDW 12.8 (11.0-16.0) % Plt Count 362 (160-400) X10*3/uL MPV 9.7 (9.4-12.3) fL Absolute Nucleated RBC 0.000 (0.0-0.012) X10*3/uL Nucleated RBC % (auto) 0.0 (0.0-0.2) /100WBC PT 12.0 (9.9-13.0) SEC INR 1.1 (0.9-1.1) Sodium 140 (135-145) mmol/L Potassium 4.3 (3.3-5.1) mmol/L Chloride 106 (96-108) mmol/L Carbon Dioxide 28 (22-29) mmol/L Anion Gap 10 L (12-20) BUN 9 (9-16) mg/dL Creatinine 1.01 (0.5-1.4) mg/dL Estim Creat Clear Calc 84.6 Estimated GFR > 60 Random Glucose 76 (60-115) mg/dL Calcium 9.4 (8.4-10.2) mg/dL Magnesium (1.6-2.6) mg/dL COVID-19 (MINOO) (Negative) COVID-19 Clin Com 06/30/21 06/30/21 Range/Units 14:15 17:08 WBC (4.8-10.8) X10*3/uL RBC (4.20-5.50) X10*6/uL Hgb (12.0-16.0) g/dl Hct (37-47) % MCV (80-98) fL MCH (27.0-33.0) pg MCHC (31.0-35.0) g/dl RDW (11.0-16.0) % Plt Count (160-400) X10*3/uL MPV (9.4-12.3) fL Absolute Nucleated RBC (0.0-0.012) X10*3/uL Nucleated RBC % (auto) (0.0-0.2) /100WBC PT (9.9-13.0) SEC INR (0.9-1.1) Sodium (135-145) mmol/L Potassium (3.3-5.1) mmol/L Chloride (96-108) mmol/L Carbon Dioxide (22-29) mmol/L Anion Gap (12-20) BUN (9-16) mg/dL Creatinine (0.5-1.4) mg/dL Estim Creat Clear Calc Estimated GFR Random Glucose (60-115) mg/dL Calcium (8.4-10.2) mg/dL Magnesium 2.1 (1.6-2.6) mg/dL COVID-19 (MINOO) Negative (Negative) COVID-19 Clin Com See Note Discharge Plan Discharge Clinical Impression: Cellulitis Qualifiers: Site of cellulitis: extremity Site of cellulitis of extremity: upper extremity Laterality: right Qualified Code(s): L03.113 - Cellulitis of right upper limb Patient Disposition: Home, Self-Care Instructions: Cellulitis (ED) Additional Instructions: Please take your antibiotic every 6 hours, take the prednisone once a day in the morning. Start both of these prescriptions today. If your symptoms do not resolve in 5-7 days, please return for another ultrasound. Please call your primary care provider on Friday for follow-up appointment. A PACU to be seen this coming week. Please return to emergency room if you have any new or concerning symptoms Prescriptions: New cephalexin 500 mg capsule 500 mg PO Q6H 5 Days Qty: 20 RF: 0 prednisone 20 mg tablet 40 mg PO DAILY 5 Days Qty: 10 RF: 0
[2021-06-30 17:09] VITALS: BP 110/81; PULSE 61; RESP 12; TEMP 36.8; O2SAT 99
[2021-06-30 17:48] LABS: COVID-19 Test Negative (Negative); IDNOW Serial# 9DD0AD1C
[2021-06-30 18:53] VITALS: BP 134/93; PULSE 69; RESP 16; O2SAT 98
--- NOTE | 2021-06-30 18:58 | PC.NURSE ---
pt states she will follow with her PCP, also states she will return if worse. She states understanding of need to corn picker her meds from pharmacy. She is ambulatory on exit with steady gait
== END 2021-06-30 18:59 | disposition home or self-care (01) ==
PROVIDERS: Physician Assistant; Emergency Provider Internal Medicine; PCP Nurse Practitioner
DX: L03.113 Cellulitis of right upper limb (principal); M79.631 Pain in right forearm; M79.621 Pain in right upper arm; Z20.822 Contact with and (suspected) exposure to COVID-19; F12.90 Cannabis use, unspecified, uncomplicated; Z86.718 Personal history of other venous thrombosis and embolism; Z79.01 Long term (current) use of anticoagulants
CPT/HCPCS: 36415; 80048; 83735; 85027; 85610; 87635; 93971; 99284

== ENCOUNTER 2022-03-21 16:13 | Emergency (ER) | payer OTHER, SELFPAY ==
--- NOTE | ~2022-03-21 | US_ITS ---
EXAMINATION: US VENOUS WITH DOPPLER UPPER EXTREMITY, BILATERAL CLINICAL INFORMATION: Lateral arm swelling right greater than left COMPARISON: None TECHNIQUE: Ultrasound of the upper extremity is performed using compression sonography and color and pulse Doppler flow with assessment of augmentation of flow. There is also imaging and Doppler assessment of the jugular and subclavian veins. Spectral analysis with color-flow imaging is performed. FINDINGS: Respiratory variation, normal compression, and augmented flow are noted throughout the upper extremity including the axillary, brachial, cubital, and radial and ulnar veins. There is normal flow in the internal jugular and subclavian veins. There is no visible deep or superficial thrombophlebitis. If the patient's symptoms progress, a followup ultrasound in 5 -7 days might be of value to exclude proximal propagation from a nonvisualized distal arm vein. US/US venous duplex UE BI IMPRESSION: No DVT demonstrated in bilateral upper extremities.
[2022-03-21 17:05] VITALS: BP 148/70; PULSE 74; RESP 18; TEMP 36.4; O2SAT 100; BMI 32.5
[2022-03-21 17:46] LABS: MANUAL DIFF FLAG NO
[2022-03-21 17:50] LABS: Basophils Percent Auto 0.3 % (0-2); Eosinophils Absolute Auto 0.1 X10*3/uL (0.0-0.4); Eosinophils Percent Auto 0.8 % (0-4); Hematocrit 37.1 % (37.0-47.0); Hemoglobin 12.1 g/dl (12.0-16.0); Imm Gran Abs Auto 0.02 X10*3/uL (0.00-0.03); Imm Gran Pct Auto 0.3 % (0.0-0.4); Lymphocytes Absolute Auto 2.2 X10*3/uL (1.2-4.9); Mean Corpuscular HGB Conc 32.6 g/dl (31.0-35.0); Mean Corpuscular Hemoglobin 31.6 pg (27.0-33.0); Mean Corpuscular Volume 96.9 fL (80.0-98.0); Mean Platelet Volume 9.8 fL (9.4-12.3); Monocytes Absolute Auto 0.6 X10*3/uL (0.1-1.2); Monocytes Percent Auto 7.3 % (2-11); Neutrophils Absolute Auto 5.1 x10*3/uL (2.0-8.3); Neutrophils Percent Auto 64.3 % (45-73); Platelet Count 321 X10*3/uL (160-400); Red Blood Count 3.83 X10*6/uL (4.20-5.50)
[2022-03-21 17:59] LABS: Anion Gap 12 (12-20); Blood Urea Nitrogen 11 mg/dL (9-16); Calcium 9.9 mg/dL (8.4-10.2); Carbon Dioxide 24 mmol/L (22-29); Chloride 106 mmol/L (96-108); Creatinine Clr Calc Pharmacy 98.4; Estimated Glomerular Filt Rate > 60; Glucose Random 87 mg/dL (60-115); Potassium 4.3 mmol/L (3.3-5.1); Sodium 138 mmol/L (135-145)
--- NOTE | 2022-03-21 19:01 | ED.EXTPRO ---
HPI - Extremity Problem General Chief complaint: Extremity Injury, Upper Stated complaint: arm pain, h/o blood clots Time Seen by Provider: 03/21/22 16:55 Source: patient Mode of arrival: ambulatory Limitations: no limitations History of Present Illness HPI Narrative: Patient comes to the emergency room complaining of right forearm pain. Patient states that she has had DVTs in the past, and the pain is similar. Back in January of last year patient was diagnosed with a DVT of the right ulnar veins, patient was on blood thinners for 3 months. Patient states that she is still being worked up by Oncology for reason for developing blood clots. 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 Patient denies any other form of trauma. Patient denies fever chills Related Data Home Medications Medication Instructions Recorded Confirmed acetaminophen 325 mg tablet 650 mg PO Q6H PRN 11/29/21 11/29/21 Allergies Allergy/AdvReac Type Severity Reaction Status Date / Time No Known Allergies Allergy Verified 03/21/22 17:05 Review of Systems Review of Systems: Constitutional : No Weight loss, No Fever, No Chills, No Night Sweats, No Fatigue, No Malaise ENT/Mouth : No Hearing loss, No Ear Pain, No Nasal Congestion, No Sinus Pain, No Hoarseness, No sore throat, No Rhinorrhea, No Swallowing Difficulty Eyes: No Eye Pain, No Swelling, No Redness, No Foreign Body, No Discharge, No Vision Changes Cardiovascular : No Chest Pain, No SOB, No Dyspnea on Exertion, No Orthopnea, No Edema, No Palpitations Respiratory : No Cough, No Sputum, No Wheezing, No Smoke Exposure, No Dyspnea Gastrointestinal : No Nausea, No Vomiting, No Diarrhea, No Constipation, No abdominal Pain, No Hematochezia, No Melena Genitourinary : no irregular bleeding, No Dysuria, No Urinary Frequency, No Hematuria, No Urinary Incontinence, No Urgency, No Flank Pain, No Urinary Flow Changes, No Hesitancy Musculoskeletal : No joint pain, complaining of right forearm pain on the right side, No Joint Swelling Skin : No Skin Lesions, No rash Neuro : No Weakness, No Numbness, No Paresthesias, No Loss of Consciousness, No Dizziness, No Headache Psych : No Anxiety/Panic, No Depression, No SI/HI/AH/VH, No Social Issues, Heme/Lymph: No Bruising, No Bleeding,No Lymphadenopathy Endocrine : No Polyuria, No Polydipsia, No Temperature Intolerance [facility] Past Medical History Medical History Anxiety Normal coronary angiogram Thrombosis Surgical History H/O wisdom tooth extraction No pertinent past surgical history Family History Family History (Updated 11/29/21 @ 10:49 by Teo Lamas RN) Father H/O deep venous thrombosis Diabetes Heart disease Mother Graves disease Diabetes H/O deep venous thrombosis Social History Social History Alcohol intake: never Patient Tobacco Use Status: Tobacco use Unknown Cigarettes Per Day: 2 Substance Use Type: Marijuana Advance Directives: No Advance Directives Information Provided: No Physical Exam Vital Signs: Vital Signs: Last Vital Signs Temp 97.6 F 03/21/22 17:05 Pulse 74 03/21/22 17:05 Resp 18 03/21/22 17:05 BP 148/70 H 03/21/22 17:05 Pulse Ox 100 03/21/22 17:05 BMI result Body Mass Index 32.5 Const: Other: Appearance: Alert. Oriented X3. No acute distress. Eyes: Pupils equal, round and reactive to light. ENT: Pharynx normal. Neck: Normal inspection. Neck supple. No lymph nodes noted. No crepitus CVS: Normal heart rate and rhythm. Pulses normal. Normal S1 and S2 Respiratory: No respiratory distress. Breath sounds normal. No Wheezing. No rales Abdomen: Soft and nontender. No rigidity. No distention. Skin: Skin warm and dry. Normal skin color. Normal skin turgor. Extremities: No lower extremity edema. Minimal pain to palpation on the distal aspect of the right forearm, no pain in upper arm or below the wrist, no hand swelling Neuro: Oriented X 3. No motor deficit. No sensory deficit. Moving all extremities. No slurred speech. CN 2 through 12 grossly intact Psych: calm, cooperative, normal affect Course Course Course Narrative: Patient's labs are not show any acute pathology. Ultrasound has been done, results pending. Ultrasound: Negative for DVT Source of arm pain likely musculoskeletal pain MDM - Extremity (Nontraumatic) Lab Data Result diagrams: 03/21/22 17:36 03/21/22 17:36 Labs: Lab Results 03/21/22 03/21/22 03/21/22 Range/Units 17:36 17:36 19:39 WBC 8.0 (4.8-10.8) X10*3/uL RBC 3.83 L (4.20-5.50) X10*6/uL Hgb 12.1 (12.0-16.0) g/dl Hct 37.1 (37.0-47.0) % MCV 96.9 (80.0-98.0) fL MCH 31.6 (27.0-33.0) pg MCHC 32.6 (31.0-35.0) g/dl RDW 13.0 (11.0-16.0) % Plt Count 321 (160-400) X10*3/uL MPV 9.8 (9.4-12.3) fL Immature Gran % (Auto) 0.3 (0.0-0.4) % Neut % (Auto) 64.3 (45-73) % Lymph % (Auto) 27.0 (20-40) % [place] % (Auto) 7.3 (2-11) % Eos % (Auto) 0.8 (0-4) % Baso % (Auto) 0.3 (0-2) % Lymph # (Auto) 2.2 (1.2-4.9) X10*3/uL [place] # (Auto) 0.6 (0.1-1.2) X10*3/uL Eos # (Auto) 0.1 (0.0-0.4) X10*3/uL Baso # (Auto) 0.0 (0.0-0.2) X10*3/uL Abs Immat Gran (auto) 0.02 (0.00-0.03) X10*3/uL Absolute Neuts (auto) 5.1 (2.0-8.3) x10*3/uL Absolute Nucleated RBC 0.000 (0.0-0.012) X10*3/uL Nucleated RBC % (auto) 0.0 (0.0-0.2) /100WBC Sodium 138 (135-145) mmol/L Potassium 4.3 (3.3-5.1) mmol/L Chloride 106 (96-108) mmol/L Carbon Dioxide 24 (22-29) mmol/L Anion Gap 12 (12-20) BUN 11 (9-16) mg/dL Creatinine 0.83 (0.5-1.4) mg/dL Estim Creat Clear Calc 98.4 Estimated GFR > 60 Random Glucose 87 (60-115) mg/dL Calcium 9.9 (8.4-10.2) mg/dL Total Bilirubin 0.9 (0.0-1.0) mg/dL Direct Bilirubin 0.3 (0.0-0.5) mg/dL AST 16 (5-31) U/L ALT 23 (0-31) U/L Alkaline Phosphatase 53 (39-117) U/L Total Protein 7.8 (6.5-8.0) g/dL Albumin 4.3 (3.5-5.0) g/dL Imaging Data Venous US: Radiologist's impression: FINDINGS: Respiratory variation, normal compression, and augmented flow are noted throughout the upper extremity including the axillary, brachial, cubital, and radial and ulnar veins. There is normal flow in the internal jugular and subclavian veins. There is no visible deep or superficial thrombophlebitis. If the patient's symptoms progress, a followup ultrasound in 5 -7 days might be of value to exclude proximal propagation from a nonvisualized distal arm vein. US/US venous duplex UE BI IMPRESSION: No DVT demonstrated in bilateral upper extremities. Discharge Plan Discharge Clinical Impression: Arm pain, right Patient Disposition: Home, Self-Care Instructions: Arm Pain (ED) Additional Instructions: Please follow-up with your primary care physician tomorrow. If you have any worsening or new symptoms, please return to the emergency room or call 911 Prescriptions: No Action acetaminophen 325 mg Tablet 650 mg PO Q6H PRN (Reason: Pain) 0RF Stand Alone Forms: Work/School Release
[2022-03-21 20:01] LABS: Alanine Aminotransferase 23 U/L (0-31); Albumin Level 4.3 g/dL (3.5-5.0); Alkaline Phosphatase 53 U/L (39-117); Aspartate Amino Transferase 16 U/L (5-31); Bilirubin Direct 0.3 mg/dL (0.0-0.5); Bilirubin Total 0.9 mg/dL (0.0-1.0); Total Protein 7.8 g/dL (6.5-8.0)
== END 2022-03-21 22:28 | disposition home or self-care (01) ==
PROVIDERS: Emergency Provider Emergency Medicine; PCP Internal Medicine
DX: M79.631 Pain in right forearm (principal); Z86.718 Personal history of other venous thrombosis and embolism
CPT/HCPCS: 36415; 80048; 80076; 85025; 93970; 99281; 99284

== ENCOUNTER 2022-04-22 07:35 | Emergency (ER) | payer OTHER, SELFPAY ==
--- NOTE | ~2022-04-22 | XR_ITS ---
EXAMINATION: XR CHEST CLINICAL INFORMATION: Chest pain. Shortness of breath. COMPARISON: Chest x-ray 04/17/2021 TECHNIQUE: Frontal view of the chest was obtained. FINDINGS: Cardiac silhouette is normal in size. The lungs are well aerated. There is no lobar consolidation. No pleural effusion or pneumothorax. XR/XR chest 1V IMPRESSION: Stable examination demonstrating no acute pulmonary pathology.
--- NOTE | 2022-04-22 07:39 | ECG_ITS ---
Test Reason : cp Blood Pressure : / mmHG Vent. Rate : 062 BPM Atrial Rate : 062 BPM P-R Int : 164 ms QRS Dur : 076 ms QT Int : 390 ms P-R-T Axes : 012 028 046 degrees QTc Int : 395 ms Normal sinus rhythm Low voltage QRS Borderline ECG When compared with ECG of 17-APR-2021 10:55, No significant change was found Referred By: Generic ED Physician Electronically Signed By:MIKEY STRONG
[2022-04-22 07:40] VITALS: BP 138/93; PULSE 62; RESP 18; TEMP 37.1; O2SAT 98; BMI 31.8
--- NOTE | 2022-04-22 07:46 | PC.NURSE ---
EKG obtained in triage. Moved to ED Bed 21.
[2022-04-22 08:16] VITALS: BP 112/77; PULSE 64; RESP 18; TEMP 37.1; O2SAT 100
[2022-04-22] MEDS: 0.9 % Sodium Chloride 1,000 ML 999 ML IV (08:44)
[2022-04-22] MEDS: Ketorolac Tromethamine 15 MG/ML VIAL IVPUSH (08:44)
[2022-04-22 09:00] LABS: Partial Thromboplastin Time 35.3 SEC (24.1-38.0)
[2022-04-22 09:11] LABS: D Dimer High Sensitivity < 150 NG/ML
--- NOTE | 2022-04-22 09:51 | PC.NURSE ---
pt reports feeling better, denies pain/pressure in the chest but states she is still getting the flutter feeling that comes and goes in her chest, sinus jovanny on the monitor
[2022-04-22 10:15] VITALS: BP 110/72; PULSE 56; RESP 18; O2SAT 99
[2022-04-22 10:39] LABS: Alanine Aminotransferase 35 U/L (0-31); Albumin Level 4.1 g/dL (3.5-5.0); Alkaline Phosphatase 52 U/L (39-117); Anion Gap 12 (12-20); Aspartate Amino Transferase 23 U/L (5-31); Bilirubin Total 0.6 mg/dL (0.0-1.0); Blood Urea Nitrogen 11 mg/dL (9-16); Calcium 9.1 mg/dL (8.4-10.2); Carbon Dioxide 23 mmol/L (22-29); Chloride 105 mmol/L (96-108); Creatinine Clr Calc Pharmacy 99.6; Estimated Glomerular Filt Rate > 60; Glucose Random 112 mg/dL (60-115); Potassium 4.2 mmol/L (3.3-5.1); Sodium 136 mmol/L (135-145); Total Protein 7.3 g/dL (6.5-8.0)
[2022-04-22 10:46] LABS: Troponin-I High Sensitivity < 3.5 ng/L (<3.5-17.0)
--- NOTE | 2022-04-22 10:47 | ED.CHESTPAIN ---
HPI - Chest Pain General Chief Complaint: Chest Pain Stated Complaint: severe chest pain, feels pressure Time Seen by Provider: 04/22/22 07:46 Source: patient Mode of arrival: ambulatory Limitations: no limitations History of Present Illness HPI narrative: 31-year-old female who presents emergency department for evaluation of intermittent chest pain x1 month with severe chest pain that started this morning at 05:00 hours when she woke up. The patient states that over the past month she has been having daily chest pain. She points to her sternum when asked to localize the pain. She describes the pain as a brief palpitation like pain the last less than 5 seconds and she has about 10 episodes per day. She states this morning she woke up at 05:00 hours and had a pressure/tightness across her anterior chest which was different than her previous pain. The pain was a constant pressure-like pain which was 8/10. The pain did not change Related Data Home Medications Medication Instructions Recorded Confirmed acetaminophen 325 mg tablet 650 mg PO Q6H PRN Pain 11/29/21 11/29/21 Allergies Allergy/AdvReac Type Severity Reaction Status Date / Time No Known Allergies Allergy Verified 04/22/22 07:45 Review of Systems Review of Systems: Yes all other systems are reviewed and are negative PMFSH Past Medical History PMFSH Narrative: Past medical history: Reviewed below, DVT of the right upper extremity completed 3 month course of Eliquis. Social history: The patient smokes 1 pack of cigarette per week. She states she drinks alcohol on the weekends, she denies drug use. Medical History Anxiety Normal coronary angiogram Thrombosis Surgical History H/O wisdom tooth extraction No pertinent past surgical history Family History Family History Father H/O deep venous thrombosis Diabetes Heart disease Mother Graves disease Diabetes H/O deep venous thrombosis Social History Social History Alcohol intake: current Alcohol intake frequency: a few times a month Alcohol type: beer Patient Tobacco Use Status: Current everyday Tobacco user Cigarettes Per Day: 2 Smoked in Last 30 Days: Yes Use of substances other than those prescribed or required for medical reasons: Yes Substance Use Type: Marijuana Substance Use Frequency: Weekly Advance Directives: No Advance Directives Information Provided: Yes Physical Exam Vital Signs: Vital Signs: Last Vital Signs Temp 98.8 F 04/22/22 08:16 Pulse 56 04/22/22 10:15 Resp 18 04/22/22 10:15 BP 110/72 04/22/22 10:15 Pulse Ox 99 04/22/22 10:15 O2 Del Method 04/22/22 10:15 BMI result Body Mass Index 31.8 Const: General: cooperative and no acute distress Orientation/consciousness: oriented to person and oriented to place Limitations: no limitations HEENT: Head: Yes normal to inspection, Yes normocephalic and Yes atraumatic Ears: external ears normal General nose exam: Normal external nose present Face and sinus: Yes normal facial exam Mouth: Normal oral and palatal mucosa present Throat: Yes posterior oropharynx normal Eyes: General: appearance normal, both eyes and all related structures Pupils: Equal, round and reactive pupils present Neck: Neck: Yes normal visual inspection, Yes no lymphadenopathy, Yes trachea midline and Yes supple Chest: Chest palpation & inspection: normal inspection of the chest and tenderness costochondral junction (Bilateral anterior chest) Resp: Effort & Inspection: normal respiratory effort and able to speak in complete sentences Auscultation: clear to auscultation bilaterally Cardio: Rate: regular rate Rhythm: regular rhythm Heart sounds: S1 normal heart sound present, S2 normal heart sound present and no murmurs GI: Inspection: Yes normal to inspection Palpation (GI): Soft to palpation, nontender and no guarding Auscultation: normal bowel sounds : General: Yes no CVA tenderness Back/Spine/Pelvis: Back: no CVA tenderness Skin: General skin exam: no rashes or lesions noted Neuro: General: oriented to person and oriented to place Cranial nerves: Yes CN's II-XII intact bilaterally and Yes Equal, round and reactive pupils present Cognition (Neuro): normal cognition Motor exam (neuro): 5/5 motor strength present throughout Extrem: General: Yes normal to inspection Psych: Appearance: grossly normal Speech and movement: Normal speech and movement present Affect: normal affect Attitude: cooperative Thought process: Normal thought process present Thought content: Normal thought content present Course Course Course Narrative: 31-year-old female who presents emergency department for evaluation of brief episodic chest pain x1 month with chest pressure/tightness that started this morning at 05:00 hours. The patient's vital signs were normal. Physical examination did reveal chest wall tenderness. Laboratory evaluation including a CBC, CMP, D-dimer, PT/INR, PTT and D-dimer were obtained. These tests were normal which is reassuring. Chest x-ray was unremarkable. Twelve EKG was unremarkable as well. The patient did have anterior chest wall tenderness on examination. She was given Toradol 30 mg IV with significant improvement of her pain. Patient most likely has costochondritis I did discuss this with her. She was advised to take ibuprofen Tylenol for pain she was given printed and verbal instructions and discharged home MDM - Chest Pain Lab Data Result diagrams: 04/22/22 08:39 Labs: Lab Results 04/22/22 04/22/22 04/22/22 Range/Units 08:39 08:39 08:39 PT 11.0 (9.9-13.0) SEC INR 1.0 (0.9-1.1) APTT 35.3 (24.1-38.0) SEC D-Dimer High Sensitivty < 150 NG/ML Sodium 136 (135-145) mmol/L Potassium 4.2 (3.3-5.1) mmol/L Chloride 105 (96-108) mmol/L Carbon Dioxide 23 (22-29) mmol/L Anion Gap 12 (12-20) BUN 11 (9-16) mg/dL Creatinine 0.81 (0.5-1.4) mg/dL Estim Creat Clear Calc 99.6 Estimated GFR > 60 Random Glucose 112 (60-115) mg/dL Calcium 9.1 D (8.4-10.2) mg/dL Total Bilirubin 0.6 (0.0-1.0) mg/dL AST 23 D (5-31) U/L ALT 35 H (0-31) U/L Alkaline Phosphatase 52 (39-117) U/L Troponin I High Sens < 3.5 (<3.5-17.0) ng/L Total Protein 7.3 (6.5-8.0) g/dL Albumin 4.1 (3.5-5.0) g/dL 04/22/22 Range/Units 08:39 PT (9.9-13.0) SEC INR (0.9-1.1) APTT (24.1-38.0) SEC D-Dimer High Sensitivty NG/ML Sodium Cancelled (135-145) mmol/L Potassium Cancelled (3.3-5.1) mmol/L Chloride Cancelled (96-108) mmol/L Carbon Dioxide Cancelled (22-29) mmol/L Anion Gap Cancelled (12-20) BUN Cancelled (9-16) mg/dL Creatinine Cancelled (0.5-1.4) mg/dL Estim Creat Clear Calc Cancelled Estimated GFR Cancelled Random Glucose Cancelled (60-115) mg/dL Calcium Cancelled (8.4-10.2) mg/dL Total Bilirubin Cancelled (0.0-1.0) mg/dL AST Cancelled (5-31) U/L ALT Cancelled (0-31) U/L Alkaline Phosphatase Cancelled (39-117) U/L Troponin I High Sens (<3.5-17.0) ng/L Total Protein Cancelled (6.5-8.0) g/dL Albumin Cancelled (3.5-5.0) g/dL ECG Data ECG #1: Interpretation: 0519: Normal sinus rhythm with a rate of 62, normal HI, QRS and QTC intervals, no ST segment elevation, no ST segment depression, no T-wave abnormalities, no PACs, no PVCs Discharge Plan Discharge Clinical Impression: Costalchondritis Patient Disposition: Home, Self-Care Instructions: Costochondritis (ED) Additional Instructions: Your blood work was normal which is reassuring. Your EKG was normal. Your chest x-ray was normal. Your symptoms are consistent with inflammation of the joints of your chest (costochondritis). This pain can come on suddenly and can be severe. The treatment is to take anti-inflammatory pain medications. Take your ibuprofen 800 mg pills, 1 pills every every 6 hours while you are awake for the next 3 days to reduce the inflammation in your chest then take it as needed. You can also Tylenol (acetaminophen) 500 mg pills, 2 pills every 6 hours as needed for pain. Follow-up with your doctor in 2 days. Please return to the emergency department if your symptoms get worse or if you develop any symptoms that are concerning to you. Prescriptions: No Action acetaminophen 325 mg Tablet 650 mg PO Q6H PRN (Reason: Pain) Stand Alone Forms: Work/School Release Interventions: ED Discharge Assessment Last Done: 04/22/22 11:58 Discharge Date/Time: 04/22/22 12:02
== END 2022-04-22 12:02 | disposition home or self-care (01) ==
PROVIDERS: Emergency Provider Emergency Medicine Emergency Medical Services; PCP Internal Medicine
DX: M94.0 Chondrocostal junction syndrome [Tietze] (principal); R07.89 Other chest pain; F17.210 Nicotine dependence, cigarettes, uncomplicated; Z71.6 Tobacco abuse counseling; Z79.899 Other long term (current) drug therapy
CPT/HCPCS: 36415; 71045; 80048; 80053; 84484; 85379; 85610; 85730; 93005; 96374; 99284; 99285; J1885

== ENCOUNTER 2022-07-25 09:45 | Emergency (ER) | payer OTHER, SELFPAY ==
--- NOTE | ~2022-07-25 | XR_ITS ---
EXAMINATION: XR CHEST CLINICAL INFORMATION: Cough. Bronchitis. COMPARISON: Previous chest x-ray most recent March 2022 TECHNIQUE: Frontal view of the chest was obtained. FINDINGS: No significant abnormality is noted involving the heart, lungs, mediastinum, bony thorax or soft tissues. XR/XR chest 1V IMPRESSION: Unremarkable examination.
[2022-07-25 10:12] VITALS: BP 124/87; PULSE 76; RESP 16; TEMP 36.7; O2SAT 97; BMI 29.4
--- NOTE | 2022-07-25 11:27 | PC.NURSE ---
NOSE BLEED THIS MORNING FOR APPROX 30 MINUTES, ONCE STOPPED FOR ABOUT 10 MINUTES SHE VOMITED BLOOD ONLY ONCE. ON ANTIBIOTIC FOR BRONCHITIS, STARTED YESTERDAY.
--- NOTE | 2022-07-25 11:45 | ECG_ITS ---
Test Reason : chest pain Blood Pressure : / mmHG Vent. Rate : 080 BPM Atrial Rate : 080 BPM P-R Int : 172 ms QRS Dur : 074 ms QT Int : 368 ms P-R-T Axes : 013 014 034 degrees QTc Int : 424 ms Normal sinus rhythm Normal ECG When compared with ECG of 22-APR-2022 07:38, No significant change was found Referred By: Shannen Fischer Electronically Signed By:NISHA BELLA
[2022-07-25] MEDS: Benzonatate 100 MG CAPSULE PO (11:52)
[2022-07-25] MEDS: HYDROcodone/Homat 5/1.5/5 ML 5 ML SYRUP PO (11:52)
--- NOTE | 2022-07-25 11:55 | ED_ITS ---
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 Reports is [place] [facility], tested negative for COVID-19/influenza/rapid strep and was diagnosed with bronchitis started on Azithromycin and Singulair. Patient states nosebleed last night lasted about 15 minutes, this morning lasted about 30 minutes resolved with direct pressure/spontaneously. States about 10 minutes later had 1 episode of bloody emesis. Denies any lightheadedness/dizzy, taking anticoagulation, fever, nausea, abdominal pain, pedal edema/calf pain, recent travel Onset (ago): day(s) Related Data Home Medications Medication Instructions Recorded Confirmed acetaminophen 325 mg tablet 650 mg PO Q6H PRN Pain 11/29/21 05/22/22 Previous Rx's Medication Instructions Recorded benzonatate 100 mg capsule 100 mg PO TID PRN cough #14 caps 07/25/22 Allergies Allergy/AdvReac Type Severity Reaction Status Date / Time No Known Allergies Allergy Verified 04/22/22 07:45 Review of Systems Review of Systems: Constitutional: No Fever, No Chills, No Fatigue, No Malaise ENT/Mouth:No Ear Pain, + Nasal Congestion, No Sinus Pain, +epistaxis (resolved), No sore throat, No Rhinorrhea, No Swallowing Difficulty Eyes: No Eye Pain, No Swelling, No Redness, No Vision Changes Cardiovascular: + Chest Pain when coughing, No SOB, No Dyspnea on Exertion, No Edema, No Palpitations Respiratory: + Cough, No Sputum, No Wheezing, No Smoke Exposure, No Dyspnea Gastrointestinal: No Nausea, No Vomiting, No Diarrhea, No Constipation, No Abdominal pain Genitourinary: No irregular bleeding, No Dysuria, No Hematuria, No Flank Pain Musculoskeletal: No joint pain, No Myalgias, No Joint Swelling Skin: No Skin Lesions, No rash Neuro: No Weakness, No Numbness, No Loss of Consciousness, No Dizziness, No Headache Yes all other systems are reviewed and are negative Constitutional: Constitutional: Reports as per [facility] Past Medical History Attestation statement: The following information was validated with the patient. Medical History Anxiety Normal coronary angiogram Thrombosis Surgical History H/O wisdom tooth extraction No pertinent past surgical history Family History Family History Father H/O deep venous thrombosis Diabetes Heart disease Mother Graves disease Diabetes H/O deep venous thrombosis Social History Social History Household Members: Spouse, Significant Other and Children Housing: Condominium Alcohol intake: current Alcohol intake frequency: a few times a week Alcohol type: beer Patient Tobacco Use Status: Current everyday Tobacco user Tobacco use type: Cigarette Cigarettes Per Day: 2 Smoked in Last 30 Days: Yes Substance Use Type: Marijuana Substance Use Frequency: Weekly Last Used Substance: Weeks (ago) Any prior treatment program specific to substance use: No Advance Directives: No service: No Current occupational status: employed Physical Exam ED Vital Signs: Vital Signs - 24 hr 07/25/22 10:12 07/25/22 12:06 Temperature 98.1 F 100.1 F Pulse Rate 76 74 Respiratory Rate 16 16 Blood Pressure 124/87 125/79 Pulse Oximetry 97 98 Oxygen Delivery Method Room Air Room Air BMI result Body Mass Index 29.4 Const Other: Persistent dry cough on exam General: cooperative, healthy appearing and no acute distress Orientation/consciousness: patient oriented x3 Limitations: no limitations HENMD Head: Yes normal to inspection and Yes atraumatic Ears: hearing grossly normal bilaterally General nose exam: Normal external nose present Face and sinus: Yes normal facial exam Eyes General: appearance normal, both eyes and all related structures EOM: EOMs intact bilaterally Neck Neck: Yes normal visual inspection and Yes no meningeal signs Chest Other: + tenderness to anterior chest wall reproducing subjective complaint. No crepitus. No flail chest Chest palpation & inspection: normal inspection of the chest and no crepitus Resp Effort & Inspection: normal respiratory effort and no respiratory distress Auscultation: clear to auscultation bilaterally, no crackles, no rales and no rhonchi Cardio Rate: regular rate Heart sounds: S1 normal heart sound present and S2 normal heart sound present GI Inspection: Yes normal to inspection Palpation (GI): Soft to palpation, nontender, no guarding and not rigid General: Yes no CVA tenderness Back/Spine/Pelvis Back: no CVA tenderness Skin Rashes: no rashes Wounds: no wounds Neuro General: patient oriented x3, tone normal and no meningeal signs Gait exam (Neuro): Normal gait present Extrem General: Yes normal to inspection, Yes no pedal edema and Yes no calf tenderness Course Course Course Narrative: XR chest 1V IMPRESSION: Unremarkable examination. Results discussed with patient including worrisome signs and symptoms and strict return precautions, and when to return to the emergency department. They verbalized understanding and feel safe for discharge at this time. Medical Decision Making MDM Narrative Medical decision making narrative: 31-year-old female with past medical history of anxiety, upper extremity DVT no longer on anticoagulation, presenting to the ED complaining of persistent cough, chest discomfort when coughing, & nosebleed last night and again this morning followed by 1 episode of bloody emesis. On exam vital signs stable, NAD, nontoxic appearing, CTA, no active epistaxis at present. No pedal edema/calf tenderness. Concern for viral syndrome/ persistent bronchitis/epistaxis causing hematemesis x1. Lower suspicion for ACS/PE. Rule out pneumonia. Plan: CXR, EKG, Hycodan/Oh Xiao Medical Records Medical records reviewed: Yes I reviewed the patient's medical records. Lab Data Lab results reviewed: Yes I reviewed the patient's lab results. ECG Data Attestation: I personally reviewed and interpreted this ECG as follows: Interpretation: EKG normal sinus rhythm at a rate of 80. QTC 424. No STEMI. Nonischemic Discharge Plan Discharge Clinical Impression: Bronchitis Patient Disposition: Home, Self-Care Instructions: Acute Bronchitis (ED) Additional Instructions: Your chest x-ray and EKG were unremarkable/reassuring Oh Xiao for cough, take as needed Stay hydrated, rest, continue to take previously prescribed antibiotics and inhaler If symptoms persist or worsen, of constant worsening shortness breath, chest pain, recurrent/persistent coughing up or vomiting blood return to the ED immediately Prescriptions: New benzonatate 100 mg capsule 100 mg PO TID PRN (Reason: cough) Qty: 14 0RF No Action acetaminophen 325 mg Tablet 650 mg PO Q6H PRN (Reason: Pain) Referrals: Mary Kovacs MD [Primary Care Provider] - 5 days Stand Alone Forms: Work/School Release
[2022-07-25 12:06] VITALS: BP 125/79; PULSE 74; RESP 16; TEMP 37.8; O2SAT 98
== END 2022-07-25 13:33 | disposition home or self-care (01) ==
PROVIDERS: Emergency Provider Emergency Medicine; PCP Internal Medicine
DX: J40 Bronchitis, not specified as acute or chronic (principal); F17.210 Nicotine dependence, cigarettes, uncomplicated; F12.90 Cannabis use, unspecified, uncomplicated
CPT/HCPCS: 71045; 93005; 99283; 99284

== ENCOUNTER 2022-08-08 18:02 | Emergency (ER) | payer OTHER, SELFPAY ==
--- NOTE | ~2022-08-08 | US_ITS ---
EXAMINATION: US VENOUS ULTRASOUND WITH DOPPLER LOWER EXTREMITY, RIGHT CLINICAL INFORMATION: Pain, tingling and numbness right leg COMPARISON: Ultrasound right upper extremity venous Doppler exam TECHNIQUE: Ultrasound of the deep veins is performed from the hip to the calf with compression sonography and color and pulse Doppler assessment. Spectral analysis with color-flow imaging is performed. FINDINGS: There is normal venous compression and respiratory variation and augmented flow. The visualized common femoral vein, superficial femoral vein, profunda femoral vein, popliteal vein, and the trifurcation region shows no evidence of deep venous thrombosis. There is no significant popliteal fossa cyst. If the patient's symptoms persist, followup ultrasound in 5 days 7 days might be of value to exclude proximal propagation from a non-visualized calf vein. US/US venous duplex LE RT IMPRESSION: No DVT demonstrated in the right lower extremity.
--- NOTE | ~2022-08-08 | XR_ITS ---
EXAMINATION: XR KNEE, RIGHT CLINICAL INFORMATION: Pain COMPARISON: None TECHNIQUE: Four views of the right knee. FINDINGS: Negative for fracture or dislocation. No suspicious bony finding. No bony erosion. XR/XR knee RT 4V IMPRESSION: No bony finding right knee
[2022-08-08 18:20] VITALS: BP 143/96; PULSE 68; RESP 18; TEMP 36.4; O2SAT 100; BMI 30.3
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
== END 2022-08-08 21:11 | disposition home or self-care (01) ==
PROVIDERS: Emergency Provider Emergency Medicine; PCP Internal Medicine
DX: G89.29 Other chronic pain (principal); M25.561 Pain in right knee; M79.604 Pain in right leg; Z86.718 Personal history of other venous thrombosis and embolism; F17.210 Nicotine dependence, cigarettes, uncomplicated; F12.90 Cannabis use, unspecified, uncomplicated
CPT/HCPCS: 73564; 93971; 99282; 99283; 99284

== ENCOUNTER 2023-02-17 17:05 | Emergency (ER) | payer OTHER, SELFPAY ==
--- NOTE | ~2023-02-17 | US_ITS ---
EXAMINATION: US VENOUS WITH DOPPLER UPPER EXTREMITY, RIGHT CLINICAL INFORMATION: DVT COMPARISON: None available. TECHNIQUE: Ultrasound of the upper extremity is performed using compression sonography and color and pulse Doppler flow with assessment of augmentation of flow. There is also imaging and Doppler assessment of the jugular and subclavian veins. Spectral analysis with color-flow imaging is performed. FINDINGS: Respiratory variation, normal compression, and augmented flow are noted throughout the upper extremity including the axillary, brachial, cubital, and radial and ulnar veins. There is normal flow in the internal jugular and subclavian veins. There is no visible deep or superficial thrombophlebitis. If the patient's symptoms progress, a followup ultrasound in 5 -7 days might be of value to exclude proximal propagation from a nonvisualized distal arm vein. US/US venous duplex UE RT IMPRESSION: No DVT demonstrated in the right upper extremity
[2023-02-17 17:13] VITALS: BP 131/98; PULSE 93; RESP 18; TEMP 36.9; O2SAT 99; BMI 32.9
--- NOTE | 2023-02-17 19:30 | ED_ITS ---
HPI - General Adult General Chief complaint: General Medical Stated complaint: right arm swelling ,pain Time Seen by Provider: 02/17/23 19:01 Source: patient Mode of arrival: ambulatory History of Present Illness HPI narrative: 32-year-old female with history of right upper extremity DVT, she now presents today after having been taken off of the Eliquis and reports initially some right forearm discomfort which she states has extended up into the right shoulder and denies any traumatic injury, denies sleeping on the extremity, denies any new exercise regimens and states that today while at work she began experiencing some numbness and tingling into the right hand which at this time is not present. Related Data Home Medications Medication Instructions Recorded Confirmed acetaminophen 325 mg tablet 650 mg PO Q6H PRN Pain 11/29/21 05/22/22 Previous Rx's Medication Instructions Recorded benzonatate 100 mg capsule 100 mg PO TID PRN cough #14 caps 07/25/22 ibuprofen 600 mg tablet 600 mg PO TID PRN pain #14 tabs 08/08/22 Allergies Allergy/AdvReac Type Severity Reaction Status Date / Time No Known Allergies Allergy Verified 02/17/23 17:16 Review of Systems Review of Systems: Pertinent positives and negatives as stated in HPI [facility] Past Medical History Source: nursing notes reviewed Medical History Anxiety Normal coronary angiogram Thrombosis Surgical History H/O wisdom tooth extraction No pertinent past surgical history Family History Family History Father H/O deep venous thrombosis Diabetes Heart disease Mother Graves disease Diabetes H/O deep venous thrombosis Social History Social History Household Members: Spouse, Significant Other and Children Housing: Condominium Alcohol intake: current Alcohol intake frequency: a few times a week Alcohol type: beer Patient Tobacco Use Status: Current everyday Tobacco user Tobacco use type: Cigarette Cigarettes Per Day: 2 Substance Use Type: Marijuana Advance Directives: No Advance Directives Information Provided: No service: No Current occupational status: employed Physical Exam ED Vital Signs: Vital Signs - 24 hr 02/17/23 17:13 Temperature 98.5 F Pulse Rate 93 Respiratory Rate 18 Blood Pressure 131/98 H Pulse Oximetry 99 Oxygen Delivery Method Room Air BMI result Body Mass Index 32.9 VITAL SIGNS: Reviewed. GENERAL: Well developed, well nourished, in no acute distress. HEAD: Normocephalic/atraumatic EYES: PERRLA, EOMI EARS: Ext canals without abnormality NOSE: Nares patent bilateral OROPHARYNX: no oral lesions noted, posterior pharynx clear NECK: Supple, no adenopathy LUNGS: Normal breath sounds. No adventitious sounds or accessory muscle use. SpO2<99> CARDIOVASCULAR: Regular rate and rhythm without noted murmurs ABDOMEN: Soft, non-tender, non-distended with bowel sounds. MUSCULOSKELETAL: No tenderness, deformities, or effusions noted on gross inspection. EXTREMITIES: No cyanosis, clubbing or edema. RUE: Mild swelling noted to the right forearm, palpable radial/ulnar pulses, sensation is intact, brachial pulse palpated, there is tenderness on palpation along the bicipital groove, no cords palpated. SKIN: Inspection of the skin reveals no rashes NEUROLOGIC: Alert and oriented x 4. Strength and sensation to light touch were grossly intact x 4. Medical Decision Making Medical Decision Making MDM Narrative: 32-year-old female who was recently taken off of Eliquis for right upper extremity DVT now presents with right upper extremity discomfort and reports some swelling to the right upper extremity. Patient also saw Dr. Mitchell at that time who ruled out thoracic outlet syndrome as a causative etiology for the DVT. Review of hematology/oncology note there is some discussion about this being a possible Paget-Schroetter syndrome . Will proceed with ultrasound right upper extremity to rule out DVT. 2056: I reviewed all investigations to include imaging studies in my interpretation is in agreement with radiology's impression that there is no evidence of a DVT. Suspect musculoskeletal pain and patient received combination on all G6 and then was discharged home in stable condition. Differential Diagnosis Please see the discussion Radiology Impression Radiologist Impression: My interpretation is in agreement with radiology's impression of the imaging studies. External Record Review External record reviewed: Office record, Outpatient record and Prior outpatient labs Discharge Plan Discharge Clinical Impression: Musculoskeletal pain of right upper extremity Patient Disposition: Home, Self-Care Instructions: Musculoskeletal Pain (ED), Arm Pain (ED) Additional Instructions: 1. Recommend [id number] Tylenol/ibuprofen as needed for pain control. 2. Recommend follow-up with your primary care provider for re-evaluation further outpatient management of your right upper extremity discomfort. Return to the ER for any worsening symptoms. Prescriptions: No Action acetaminophen 325 mg Tablet 650 mg PO Q6H PRN (Reason: Pain) benzonatate 100 mg capsule 100 mg PO TID PRN (Reason: cough) Qty: 14 0RF ibuprofen 600 mg tablet 600 mg PO TID PRN (Reason: pain) Qty: 14 0RF Referrals: Mary Kovacs MD [Primary Care Provider] -
[2023-02-17] MEDS: Ibuprofen 400 MG TABLET PO (21:03)
[2023-02-17] MEDS: Acetaminophen 325 MG TABLET 975 MG PO (21:03)
== END 2023-02-17 21:07 | disposition home or self-care (01) ==
PROVIDERS: Emergency Provider Student in an Organized Health Care Education/Training Program; PCP Internal Medicine
DX: M79.18 Myalgia, other site (principal); M79.601 Pain in right arm; F17.210 Nicotine dependence, cigarettes, uncomplicated; F12.90 Cannabis use, unspecified, uncomplicated; Z86.718 Personal history of other venous thrombosis and embolism
CPT/HCPCS: 93971; 99283; 99284

== ENCOUNTER 2023-08-28 00:12 | Emergency (ER) | payer OTHER, SELFPAY ==
--- NOTE | ~2023-08-28 | CT_ITS ---
EXAMINATION: CT HEAD WITHOUT CONTRAST CT CERVICAL SPINE WITHOUT CONTRAST CLINICAL INFORMATION: Fall. Injury. Pain. COMPARISON: None available. TECHNIQUE: Contiguous axial imaging was performed from the skull base to vertex without intravenous administration of contrast. This CT examination was performed using dose optimization techniques as appropriate, variously including the following: *Automated exposure control *Adjustment of mA and/or kV according to patient size (this includes techniques or standardized protocols for targeted exams where dose is matched to indication/reason for exam; i.e. extremities or head) *Use of iterative reconstruction technique DLP: 1773 mGy-cm FINDINGS: The lateral, third and fourth ventricles are normally outlined. The cortical sulci are normally outlined as well. There is no acute territorial defect, hemorrhage or midline shift. The extra-axial spaces are unremarkable. Calvarium: Intact. Maxillofacial sinuses and mastoids: Clear as visualized. Cervical spine: There is straightening of the cervical spine curvature. The disc spaces are maintained. The bone mineralization is normal. No fracture. The soft tissues are unremarkable. The upper lung cadena are clear. CT/CT cervical spine wo IV con IMPRESSION: No acute intracranial abnormality. Straightening of the cervical spine curvature of uncertain significance. No evidence for fracture.
--- NOTE | ~2023-08-28 | XR_ITS ---
EXAMINATION: XR HAND, LEFT CLINICAL INFORMATION: Injury. Pain. COMPARISON: None available. TECHNIQUE: PA, lateral, and oblique views of the left hand. FINDINGS: The bones and soft tissues are normal. No fracture. Alignment is anatomic. Joint spaces are maintained. No erosions or soft tissue calcifications. XR/XR hand LT min 3V IMPRESSION: No significant abnormality identified.
--- NOTE | ~2023-08-28 | CT_ITS ---
EXAMINATION: CT HEAD WITHOUT CONTRAST CT CERVICAL SPINE WITHOUT CONTRAST CLINICAL INFORMATION: Fall. Injury. Pain. COMPARISON: None available. TECHNIQUE: Contiguous axial imaging was performed from the skull base to vertex without intravenous administration of contrast. This CT examination was performed using dose optimization techniques as appropriate, variously including the following: *Automated exposure control *Adjustment of mA and/or kV according to patient size (this includes techniques or standardized protocols for targeted exams where dose is matched to indication/reason for exam; i.e. extremities or head) *Use of iterative reconstruction technique DLP: 1773 mGy-cm FINDINGS: The lateral, third and fourth ventricles are normally outlined. The cortical sulci are normally outlined as well. There is no acute territorial defect, hemorrhage or midline shift. The extra-axial spaces are unremarkable. Calvarium: Intact. Maxillofacial sinuses and mastoids: Clear as visualized. Cervical spine: There is straightening of the cervical spine curvature. The disc spaces are maintained. The bone mineralization is normal. No fracture. The soft tissues are unremarkable. The upper lung cadena are clear. CT/CT head/brain wo IV con IMPRESSION: No acute intracranial abnormality. Straightening of the cervical spine curvature of uncertain significance. No evidence for fracture.
[2023-08-28 00:19] VITALS: BP 140/101; PULSE 74; RESP 20; TEMP 36.3; O2SAT 100; BMI 31.9
--- NOTE | 2023-08-28 02:23 | ED.EXTPRO ---
HPI - Extremity Problem General Chief complaint: Extremity Injury, Upper Stated complaint: hand inj? Time Seen by Provider: 08/28/23 02:10 Source: patient and family Mode of arrival: ambulatory Limitations: no limitations History of Present Illness HPI Narrative: Patient comes to the emergency room complaining of injuries to the left hand. Patient is unwilling to say what happened. Patient has multiple lacerations to the dorsum of the hand/fingers. Related Data Home Medications Medication Instructions Recorded Confirmed acetaminophen 325 mg tablet 650 mg PO Q6H PRN Pain 11/29/21 05/22/22 Previous Rx's Medication Instructions Recorded benzonatate 100 mg capsule 100 mg PO TID PRN cough #14 caps 07/25/22 ibuprofen 600 mg tablet 600 mg PO TID PRN pain #14 tabs 08/08/22 Allergies Allergy/AdvReac Type Severity Reaction Status Date / Time No Known Allergies Allergy Verified 08/28/23 00:19 Review of Systems Review of Systems: Constitutional : No Weight loss, No Fever, No Chills, No Night Sweats, No Fatigue, No Malaise ENT/Mouth : No Hearing loss, No Ear Pain, No Nasal Congestion, No Sinus Pain, No Hoarseness, No sore throat, No Rhinorrhea, No Swallowing Difficulty Eyes: No Eye Pain, No Swelling, No Redness, No Foreign Body, No Discharge, No Vision Changes Cardiovascular : No Chest Pain, No SOB, No Dyspnea on Exertion, No Orthopnea, No Edema, No Palpitations Respiratory : No Cough, No Sputum, No Wheezing, No Smoke Exposure, No Dyspnea Gastrointestinal : No Nausea, No Vomiting, No Diarrhea, No Constipation, No abdominal Pain, No Hematochezia, No Melena Genitourinary : no irregular bleeding, No Dysuria, No Urinary Frequency, No Hematuria, No Urinary Incontinence, No Urgency, No Flank Pain, No Urinary Flow Changes, No Hesitancy Musculoskeletal : No joint pain, No Myalgias, No Joint Swelling Skin : Lining of multiple lacerations to the left hand and fingers Neuro : No Weakness, No Numbness, No Paresthesias, No Loss of Consciousness, No Dizziness, No Headache Psych : No Anxiety/Panic, No Depression, No SI/HI/AH/VH, No Social Issues, Heme/Lymph: No Bruising, No Bleeding,No Lymphadenopathy Endocrine : No Polyuria, No Polydipsia, No Temperature Intolerance PMFSH Past Medical History Medical History Normal coronary angiogram Thrombosis Anxiety Surgical History H/O wisdom tooth extraction No pertinent past surgical history Family History Family History Father H/O deep venous thrombosis Diabetes Heart disease Mother Graves disease Diabetes H/O deep venous thrombosis Social History Social History Household Members: Spouse, Significant Other and Children [facility] Alcohol intake: current Alcohol intake frequency: a few times a week Alcohol type: beer Patient Tobacco Use Status: Current everyday Tobacco user Tobacco use type: Cigarette Cigarettes Per Day: 2 Substance Use Type: Marijuana Advance Directives: No Advance Directives Information Provided: No service: No Current occupational status: employed Physical Exam Vital Signs: Vital Signs: Last Vital Signs Temp 97.4 F 08/28/23 00:19 Pulse 76 08/28/23 05:29 Resp 17 08/28/23 05:29 BP 123/79 08/28/23 05:29 Pulse Ox 99 08/28/23 05:29 O2 Del Method Room Air 08/28/23 05:29 BMI result Body Mass Index 31.9 Const: Other: Appearance: Alert. not answering questions, belligerent, Patient seems to be intoxicated with alcohol Eyes: Pupils equal, round and reactive to light. ENT: Pharynx normal. Neck: Normal inspection. Neck supple. No lymph nodes noted. No crepitus CVS: Normal heart rate and rhythm. Pulses normal. Normal S1 and S2 Respiratory: No respiratory distress. Breath sounds normal. No Wheezing. No rales Abdomen: Soft and nontender. No rigidity. No distention. Skin: Skin warm and dry. Normal skin color. Normal skin turgor. Extremities: Patient able to flex and extend all fingers of the right hand, patient has several lacerations to various fingers of the left hand including thumb, index and pinky finger. Neuro: Oriented X 3. No motor deficit. No sensory deficit. Moving all extremities. No slurred speech. CN 2 through 12 grossly intact Psych: calm, cooperative, normal affect Course Course Course Narrative: -patient unwilling to state what happened. -patient does not know she is up-to-date with her tetanus shot, patient will given Tdap in the ED -patient has thick eschars her left hand, patient's hand will be cleaned and then we will reassess if patient needs stitches -head CT and cervical spine CT pending Medications Administered Discontinued Medications Generic Name Dose Route Start Last Admin Trade Name Issa PRN Reason Stop Dose Admin Diphtheria/Tetanus/Acell Pertussis 0.5 ml 08/28/23 02:20 08/28/23 04:42 Diphth,Pertus(Acell),Tet Adult 0.5 Ml Syringe IM 08/28/23 02:21 0.5 ml .ONCE ONE Administration Lidocaine HCl 1 appl 08/28/23 05:10 08/28/23 05:19 Lidocaine 4 % Cream Kit TOPICAL 08/28/23 05:11 1 appl ONCE ONE Administration Protocol Medical Decision Making Medical Decision Making MDM Narrative: -I was informed by the patient's nurse that the patient was rolling in her bed, fell, unwitnessed. -my interpretation of his CT of the head: No intracranial bleed -patient needed stitches to her fingers and hand. Laceration on the 5th digit left hand approximately 1 cm, flap, 3 stitches, index finger approximately 1 cm with flap, for stitches, some dorsal aspect approximately 1 cm, uneven, flap, 4 stitches -is now awake, alert and oriented x3, sober. Patient states that she does not remember how she fell or how she got injured. Patient admits to drinking alcohol earlier today -06:40, patient is clinically sober. Ready for discharge, patient's mother is here to pick her up Differential Diagnosis Differential Diagnoses: The differential diagnosis associated with the presentation includes (Polysubstance abuse, alcohol intoxication, head fracture,) Admission/Observation Consideration of admission/observation: Escalation of care including admission/observation considered (Patient was under observation until clinically sober.) Radiology Impression Discussion of test interpretation with radiology: I have reviewed the radiologist's reading. Radiologist Impression: FINDINGS: The lateral, third and fourth ventricles are normally outlined. The cortical sulci are normally outlined as well. There is no acute territorial defect, hemorrhage or midline shift. The extra-axial spaces are unremarkable. Calvarium: Intact. Maxillofacial sinuses and mastoids: Clear as visualized. Cervical spine: There is straightening of the cervical spine curvature. The disc spaces are maintained. The bone mineralization is normal. No fracture. The soft tissues are unremarkable. The upper lung cadena are clear. CT/CT head/brain wo IV con IMPRESSION: No acute intracranial abnormality. Straightening of the cervical spine curvature of uncertain significance. No evidence for fracture. Procedures Laceration Laceration 1: Site: other (Fifth digit left hand) Size (cm): 1 Description: linear and flap Depth: simple, single layer Local Anesthetic: lidocaine 1% Amount of anesthesia used (mL): 2 Skin layer closed with: nylon Size (cm): 4-0 Number of sutures: 3 Laceration 2: Site: other (Left index finger) Size (cm): 1 Description: stellate, flap and irregular Depth: simple, single layer Local Anesthetic: lidocaine 1% Amount of anesthesia used (mL): 2 Skin layer closed with: nylon Size (cm): 4-0 Number of sutures: 4 Technique: simple, interrupted Laceration 3: Site: other (Dorsum of thumb of left hand) Description: stellate, flap and irregular Depth: simple, single layer Local Anesthetic: lidocaine 1% Amount of anesthesia used (mL): 2 Skin layer closed with: nylon Size (cm): 4-0 Number of sutures: 4 Technique: simple, interrupted Discharge Plan Discharge Clinical Impression: Alcohol intoxication, Laceration of multiple sites of hand and fingers Patient Disposition: Home, Self-Care Instructions: Laceration (ED) Additional Instructions: Please follow-up with your primary care physician tomorrow. If you have any worsening or new symptoms, please return to the emergency room or call 911 Prescriptions: No Action acetaminophen 325 mg Tablet 650 mg PO Q6H PRN (Reason: Pain) benzonatate 100 mg capsule 100 mg PO TID PRN (Reason: cough) Qty: 14 0RF ibuprofen 600 mg tablet 600 mg PO TID PRN (Reason: pain) Qty: 14 0RF Stand Alone Forms: Work/School Release
[2023-08-28] MEDS: Diphth,Pertus(ACell),Tet Adult 0.5 ML SYRINGE IM (04:42)
[2023-08-28] MEDS: Lidocaine 4 % Cream KIT 1 APPL TOPICAL (05:19)
[2023-08-28 05:29] VITALS: BP 123/79; PULSE 76; RESP 17; O2SAT 99
== END 2023-08-28 06:51 | disposition home or self-care (01) ==
PROVIDERS: Emergency Provider Emergency Medicine
DX: S61.012A Laceration without foreign body of left thumb without damage to nail, initial encounter (principal); S61.412A Laceration without foreign body of left hand, initial encounter; S60.512A Abrasion of left hand, initial encounter; F10.129 Alcohol abuse with intoxication, unspecified; R51.9 Headache, unspecified; M54.2 Cervicalgia; M79.642 Pain in left hand; Y90.9 Presence of alcohol in blood, level not specified; X58.XXXA Exposure to other specified factors, initial encounter; Y93.9 Activity, unspecified; Y92.9 Unspecified place or not applicable; Y99.9 Unspecified external cause status; F17.210 Nicotine dependence, cigarettes, uncomplicated; Z71.6 Tobacco abuse counseling; Z79.899 Other long term (current) drug therapy; Z23 Encounter for immunization
CPT/HCPCS: 12002; 70450; 72125; 73130; 90471; 90715; 99284